=== PATIENT | female | born 1940 | race Caucasian/White ===

== ENCOUNTER 2016-11-12 08:19 | Inpatient (IN) | payer MEDICARE, BC ==
[2016-11-12] MEDS ORDERED: Ondansetron 4 MG Tab.DIS PO PRN (15:08)
[2016-11-12] MEDS ORDERED: Sodium Chloride 0.9% 10 ML Syringe FLUSH PRN (15:08)
[2016-11-12] MEDS: Lactated Ringers 1,000 ML IV SCH (16:51)
[2016-11-12] MEDS: Enoxaparin 40 MG/0.4 ML Syringe SUBCUT SCH (17:25)
[2016-11-12] MEDS ORDERED: Acyclovir 400 MG Tab PO PRN (17:38)
[2016-11-12] MEDS ORDERED: Acetaminophen 325 MG Tab PO PRN (17:38)
[2016-11-12] MEDS ORDERED: GLYCERIN 0.9% EYEBOTH PRN (17:38)
[2016-11-12] MEDS ORDERED: Albuterol/Ipratropium 4 GM Inhalation Spray INH PRN (17:38)
[2016-11-12] MEDS ORDERED: CARBOXYMETHYLCELLULOSE EYEBOTH PRN (17:38)
--- NOTE | 2016-11-12 17:38 | PCM.HP ---
H&P History of Present Illness - General Date of Service: 11/12/16 Admit Problem/Dx: Admission Diagnosis/Problem Admission Diagnosis/Problem Dehydration History Limitations: Reports: No limitations - History of Present Illness Initial Comments - Free Text/Narative: This is a 76-year-old female admitted from the clinic directly because of increasing confusion. She has experienced diarrhea for the last several weeks for which no cause has been identified. Her primary care physician saw her with complaints of increasing weakness, alteration of mental status and increasing difficulty memorizing and computing. She was admitted for further workup because of concern for dehydration and to follow other possibility other possible causes of the diarrhea.She lives at an independent living facility, [facility]. She has a history of a stroke, several years ago, hypertension which has been stable, anxiety and depression that has been difficult to control , with recent initiation of Lexapro 10 mg a day. 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 Furthermore she's had frequent unit tract infections. She also has a history of dementia, which is mild and is currently treated by [facility]. She has oxygen-dependent COPD treated as of nasal cannula everyday continuously. There has been no increase in its use. She complains of no chest pain or shortness of breath or cough. Generalized Pain Score (Numeric/FACES): 5 - Related Data Allergies/Adverse Reactions: Allergies Allergy/AdvReac Type Severity Reaction Status Date / Time bacitracin Allergy Itching Verified 02/27/16 08:55 ciprofloxacin [From Cipro] Allergy Diarrhea Verified 02/27/16 08:55 ciprofloxacin HCl Allergy Diarrhea Verified 02/27/16 08:55 [From Cipro] morphine Allergy Headache Verified 02/27/16 08:55 Home Medications: Home Meds Cholecalciferol (Vitamin D3) [Vitamin D3] 3,000 unit PO DAILY@1800 07/11/14 [ History] Clopidogrel [Plavix] 75 mg PO MOWEFR 07/11/14 [History] Donepezil HCl 10 mg PO BEDTIME 07/11/14 [History] Furosemide [Lasix] 20 mg PO DAILY 07/11/14 [History] Memantine HCl [Namenda Xr] 21 mg PO BEDTIME 07/11/14 [History] Spironolactone [Aldactone] 12.5 mg PO DAILY 07/11/14 [History] clonazePAM [Klonopin] 0.5 mg PO BEDTIME 07/11/14 [History] traZODone 100 mg PO BEDTIME 07/11/14 [History] Albuterol/Ipratropium [Combivent Respimat] 2 puff IH QID 02/26/16 [History] Leflunomide [Arava] 20 mg PO DAILY 02/26/16 [History] Aspirin [Lo-Dose Aspirin EC] 81 mg PO DAILY@1200 05/23/16 [History] Lidhygenix 1 applic EYEBOTH MOTH 05/23/16 [History] Magnesium 250 mg PO BIDMEALS 05/23/16 [History] Multivitamin [Daily Elzbieta] 1 tab PO DAILY 05/23/16 [History] Oxybutynin 5 mg PO BID 05/23/16 [History] Potassium Chloride [Klor-Con M20] 30 meq PO BIDMEALS 05/23/16 [History] Ranitidine [Zantac] 150 mg PO BIDMEALS 05/23/16 [History] Simvastatin [Zocor] 60 mg PO BEDTIME 05/23/16 [History] cycloSPORINE [Restasis] 1 drop EYEBOTH BID 05/23/16 [History] Acetaminophen [Tylenol] 650 mg PO Q4H PRN 11/12/16 [History] Acyclovir 400 mg PO QID PRN 11/12/16 [History] Calcium Carbonate [Calcium] 600 mg PO BIDMEALS 11/12/16 [History] Carboxymethylcellulos/Glycerin [Refresh Optive] 1 drop EYEBOTH QID PRN 11/12/16 [History] Cliradex Foam 1 applic TOP MOTH 11/12/16 [History] Diphenoxylate HCl/Atropine [Lomotil] 1 tab PO QID PRN 11/12/16 [History] Escitalopram [Lexapro] 10 mg PO BEDTIME 11/12/16 [History] Loperamide [Imodium AD] 2 mg PO ASDIRECTED PRN 11/12/16 [History] oxyCODONE HCl/Acetaminophen [Percocet 10-325 mg Tablet] 1 tab PO QID 11/12/16 [ History] Past Medical History HEENT History: Reports: Cataract, Macular degeneration Cardiovascular History: Reports: Bypass, Hypertension, Other (see below) Other Cardiovascular History: BYPASS GRAFT WVEIN SUBCLAVIAN-BRACHIAL, CAROTID ENDARTERECTOMY, CVD Respiratory History: Reports: COPD, Other (see below) Other Respiratory History: CHRONIC AIRWAY OBSTRUCTION, IPF Gastrointestinal History: Reports: Diverticulosis, GERD Other Gastrointestinal History: DYSPHAGIA Other Genitourinary History: BLADDER TUMOR,GROSS HEMATURIA, URINARY INCONTINENCE , RECURRENT UTI, OAB, COMMUNICATION SIGNALS INTELLIGENCE History: Reports: Musculoskeletal History: Reports: Back pain, chronic, Fracture Other Musculoskeletal History: LUMBAGO Neurological History: Reports: CVA, Speech problems Other Neuro History: EXPRESSIVE APHAGIA, GENERALIZED ANXIETY DISORDER Psychiatric History: Reports: Dementia, Depression Dermatologic History: Reports: Other (see below) Other Dermatologic History: CANDIDIASIS OF SKIN AND NAILS - Infectious Disease History Infectious Disease History: Reports: Chicken pox, Measles - Past Surgical History HEENT Surgical History: Reports: Cataract surgery, Tonsillectomy, Other (see below) Other HEENT Surgeries/Procedures: RECONSTRUCTION LEFT EAR, ESOPHAGEAL MANOMETRY, EGD, LAP FILIPE, BRAIN SURGERY Cardiovascular Surgical History: Reports: Carotid endarterectomy Other Cardiovascular Surgeries/Procedures: SEE WRITTEN H&P Respiratory Surgical History: Reports: None GI Surgical History: Reports: Appendectomy, Cholecystectomy, EGD Female Surgical History: Reports: Hysterectomy Other Female Surgeries/Procedures: TUR BLADDER Musculoskeletal Surgical History: Reports: Carpal tunnel, Hip replacement, Other (see below) Other Musculoskeletal Surgeries/Procedures:: ARTHRODESIS WRIST, OSTEOPLASTY RADIUS & ULNA SHORTENING,BACK SURGERY, ARTHROPLASTY KNEE, TOTAL LEFT HIP, WRIST FUSION, LEFT, THROMBOPHLEBITIS Social & Family History - Family History Family Medical History: Noncontributory HEENT: Reports: Impaired vision Cardiac: Reports: IA Respiratory: Reports: None OBGYN: Reports: Other Oncologic Family History: zmot - Tobacco Use Smoking Status *Q: Former Smoker Years of Tobacco use: 54 Packs/Tins Daily: 2 Used Tobacco, but Quit: Yes Month Tobacco Last Used: May Tobacco Use Comment: QUIT 7 YEARS AGO Second Hand Smoke Exposure: No - Caffeine Use Caffeine Use: Reports: Other Other Caffeine Use: DIET SODA'S IN LARGE AMOUNTS PER DAY. - Alcohol Use Days Per Week of Alcohol Use: 0 - Recreational Drug Use Recreational Drug Use: No H&P Review of Systems - Review of Systems: Review Of Systems: ROS reveals no pertinent complaints other than HPI. Exam - Exam Exam: See Below - Vital Signs Vital Signs: Last Vital Signs Temp 98.1 F 11/12/16 14:50 Pulse 82 11/12/16 14:50 Resp 24 H 11/12/16 14:50 BP 101/58 L 11/12/16 14:50 Pulse Ox 91 L 11/12/16 14:50 Weight: 60.356 kg - Exam Quality Assessment: supplemental oxygen General: alert, oriented, 4 HEENT: PERRLA, Hearing intact, Mucosa moist & pink, Nares patent, Normal nasal septum, Posterior pharynx clear, Conjunctiva clear, EOMI, EACs clear, TMs clear Neck: supple, trachea midline, 2 Lungs: Clear to auscultation, Normal respiratory effort Cardiovascular: regular rate, regular rhythm Abdomen: normal bowel sounds, soft (Female) Exam: Deferred Rectal (Female) Exam: Deferred Back Exam: normal inspection, full range of motion, NT Extremities: 3, normal inspection, 10 Skin: warm, dry, intact Neurological: cranial nerves intact, reflexes equal bilateral Neuro Extensive - Mental Status: alert, oriented x3, normal mood/affect, normal cognition Neuro Extensive - Motor, Sensory, Reflexes: CN II-XII intact, normal gait, normal reflexes Psychiatric: alert, normal affect (mild confusion-doesnt know the month), other - Patient Data Lab Results last 24 hrs: Laboratory Results - last 24 hr 11/12/16 11/12/16 11/12/16 Range/Units 15:25 15:25 15:25 WBC 6.5 (4.5-12.0) X10-3/uL RBC 4.17 (3.23-5.20) x10(6)uL Hgb 12.6 (11.5-15.5) g/dL Hct 37.3 (30.0-51.3) % MCV 89.5 (80-96) fL MCH 30.2 (27.7-33.6) pg MCHC 33.8 (32.2-35.4) g/dL RDW 13.6 (11.5-15.5) % Plt Count 126 (125-369) X10(3)uL MPV 10.0 (7.4-10.4) fL Neut % (Auto) 59.7 (46-82) % Lymph % (Auto) 28.5 (13-37) % [place] % (Auto) 10.2 (4-12) % Eos % (Auto) 1 (1.0-5.0) % Baso % (Auto) 1 (0-2) % Neut # (Auto) 3.8 (1.6-8.3) # Lymph # (Auto) 1.8 (0.6-5.0) # [place] # (Auto) 0.7 (0.0-1.3) # Eos # (Auto) 0.1 (0.0-0.8) # Baso # (Auto) 0.0 (0.0-0.2) # ABG pH (7.35-7.45) ABG pCO2 (35-45) mmHg ABG pO2 (83-108) mmHg ABG HCO3 (22-26) mmol/L ABG O2 Saturation (96-97) % ABG Base Excess (-2-2) Mervin Test O2 Delivery Device Oxygen Flow Rate L Sodium 140 (135-145) mmol/L Potassium 3.5 (3.5-5.3) mmol/L Chloride 111 H D (100-110) mmol/L Carbon Dioxide 21 L (23-29) mmol/L BUN 16 (8-23) mg/dL Creatinine 0.8 (0.6-1.3) mg/dL Est Cr Clr Drug Dosing 48.06 mL/min Estimated GFR (MDRD) > 60 (>60) BUN/Creatinine Ratio 20.0 (9-20) Glucose 92 (80-116) mg/dL Calcium 8.5 L (8.6-10.2) mg/dL Total Bilirubin 0.7 (0.1-1.3) mg/dL AST 46 H D (5-27) IU/L ALT 29 H (14-26) IU/L Alkaline Phosphatase 51 L (56-112) IU/L Troponin I 0.01 L (0.02-0.06) NG/ML Total Protein 6.4 (6.0-8.0) g/dL Albumin 3.8 (3.2-4.6) g/dL Globulin 2.6 g/dL Albumin/Globulin Ratio 1.5 03/22/17 Range/Units 16:25 WBC (4.5-12.0) X10-3/uL RBC (3.23-5.20) x10(6)uL Hgb (11.5-15.5) g/dL Hct (30.0-51.3) % MCV (80-96) fL MCH (27.7-33.6) pg MCHC (32.2-35.4) g/dL RDW (11.5-15.5) % Plt Count (125-369) X10(3)uL MPV (7.4-10.4) fL Neut % (Auto) (46-82) % Lymph % (Auto) (13-37) % [place] % (Auto) (4-12) % Eos % (Auto) (1.0-5.0) % Baso % (Auto) (0-2) % Neut # (Auto) (1.6-8.3) # Lymph # (Auto) (0.6-5.0) # [place] # (Auto) (0.0-1.3) # Eos # (Auto) (0.0-0.8) # Baso # (Auto) (0.0-0.2) # ABG pH 7.43 (7.35-7.45) ABG pCO2 29 L (35-45) mmHg ABG pO2 78 L (83-108) mmHg ABG HCO3 19 L (22-26) mmol/L ABG O2 Saturation 96 (96-97) % ABG Base Excess -3.3 L (-2-2) Mervin Test Passed O2 Delivery Device Nasal cannula Oxygen Flow Rate 0 L Sodium (135-145) mmol/L Potassium (3.5-5.3) mmol/L Chloride (100-110) mmol/L Carbon Dioxide (23-29) mmol/L BUN (8-23) mg/dL Creatinine (0.6-1.3) mg/dL Est Cr Clr Drug Dosing mL/min Estimated GFR (MDRD) (>60) BUN/Creatinine Ratio (9-20) Glucose (80-116) mg/dL Calcium (8.6-10.2) mg/dL Total Bilirubin (0.1-1.3) mg/dL AST (5-27) IU/L ALT (14-26) IU/L Alkaline Phosphatase (56-112) IU/L Troponin I (0.02-0.06) NG/ML Total Protein (6.0-8.0) g/dL Albumin (3.2-4.6) g/dL Globulin g/dL Albumin/Globulin Ratio Result Diagrams: 11/12/16 15:25 11/13/16 06:25 Imaging Impressions last 24 hrs: CXR-negative *Q Meaningful Use (ADM) - VTE *Q VTE Criteria *Q: - Stroke *Q Stroke Criteria *Q: - AMI *Q AMI Criteria *Q: - Problem List (1) Diarrhea SNOMED Code(s): 42040317 ICD Code: R19.7 - DIARRHEA, UNSPECIFIED Status: Acute Current Visit: Yes Qualifiers: Diarrhea type: unspecified type Qualified Code(s): R19.7 - Diarrhea, unspecified (2) Dehydration SNOMED Code(s): 33712332 ICD Code: E86.0 - DEHYDRATION Status: Acute Current Visit: Yes (3) Chronic back pain SNOMED Code(s): 668131537 ICD Code: M54.9 - DORSALGIA, UNSPECIFIED; G89.29 - OTHER CHRONIC PAIN Status: Chronic Current Visit: Yes Qualifiers: Back pain location: low back pain Sciatica presence: without sciatica (4) CAD (coronary artery disease) SNOMED Code(s): 19772673 ICD Code: I25.10 - ATHSCL HEART DISEASE OF [place] CORONARY ARTERY W/O ANG PCTRS Status: Chronic Current Visit: No (5) COPD, Moderate chronic obstructive pulmonary disease SNOMED Code(s): 660951536 ICD Code: J44.9 - CHRONIC OBSTRUCTIVE PULMONARY DISEASE, UNSPECIFIED Status : Chronic Current Visit: No (6) Depression SNOMED Code(s): 40831189 ICD Code: F32.9 - MAJOR DEPRESSIVE DISORDER, SINGLE EPISODE, UNSPECIFIED Status: Chronic Current Visit: Yes Qualifiers: Depression Type: major depressive disorder Active/Remission status: currently active Psychotic features: without psychotic features (7) Mental confusion SNOMED Code(s): 380248487 ICD Code: R41.0 - DISORIENTATION, UNSPECIFIED Status: Acute Current Visit : No Problem Details: Multifactorial Problem List Initiated/Reviewed/Updated: Yes Orders Last 24hrs: Active Orders 24 hr Category Date Time Status Patient Status [ADT] Routine ADT 11/12/16 15:08 Active EKG Documentation Completion [RC] ASDIRECTED Care 11/12/16 15:12 Active Height and Weight [RC] 07 Care 11/12/16 15:08 Active Intake and Output [RC] 06,14,22 Care 11/12/16 15:10 Active May Shower [RC] ASDIRECTED Care 11/12/16 15:08 Active Oxygen Therapy [RC] PRN Care 11/12/16 15:08 Active Up With Assistance [RC] ASDIRECTED Care 11/12/16 15:08 Active VTE/DVT Education [RC] Per Unit Routine Care 11/12/16 15:08 Active Vital Signs [RC] Q4H Care 11/12/16 15:08 Active OT Evaluation and Treatment [CONS] Routine Cons 11/12/16 15:08 Active PT Evaluation and Treatment [CONS] Routine Cons 11/12/16 15:08 Active Regular Diet [DIET] Diet 11/12/16 Dinner Active Chest 2V [CR] Routine Exams 11/12/16 15:08 Taken B-TYPE NATRIURETIC PEPTIDE,BNP [CHEM] AM Lab 11/13/16 05:11 Ordered BASIC METABOLIC PANEL,BMP [CHEM] AM Lab 11/13/16 05:11 Ordered C DIFFICILE BY DNA [RM] Urgent Lab 11/12/16 17:34 Uncollected UA W/MICROSCOPIC [URIN] Routine Lab 11/12/16 15:08 Uncollected Enoxaparin [Lovenox] Med 11/12/16 17:00 Active 40 mg SUBCUT DAILY@1700 Lactated Ringers [Ringers, Lactated] 1,000 ml Med 11/12/16 15:15 Active IV ASDIRECTED Ondansetron [Zofran ODT] Med 11/12/16 15:08 Active 4 mg PO Q4H PRN Sodium Chloride 0.9% [Saline Flush] Med 11/12/16 15:08 Active 10 ml FLUSH ASDIRECTED PRN Peripheral IV Insertion Adult [OM.PC] Routine Oth 11/12/16 15:08 Ordered Sequential Compression Device [OM.PC] Per Unit Routine Oth 11/12/16 15:10 Ordered Resuscitation Status Routine Resus Stat 11/12/16 15:08 Ordered EKG 12 Lead [EK] Routine Ther 11/12/16 15:08 Ordered Medication Orders Enoxaparin Sodium (Lovenox) 40 mg SUBCUT DAILY@1700 MYLES Last Admin: 11/12/16 17:25 Dose: 40 mg Lactated Ringer's (Ringers, Lactated) 1,000 mls @ 125 mls/hr IV ASDIRECTED MYLES Last Admin: 11/12/16 16:51 Dose: 125 mls/hr Ondansetron HCl (Zofran Odt) 4 mg PO Q4H PRN PRN Reason: nausea, able to take PO Sodium Chloride (Saline Flush) 10 ml FLUSH ASDIRECTED PRN PRN Reason: Keep Vein Open Last Admin: 11/12/16 16:51 Dose: 10 ml Assessment/Plan Comment:: The patient woll be admotted for observation, and rehydration. She looks weak and her bicarbonate is low, I believe crystalloids replacement will be necessary for the next 12 hours. Also given Lomotil to control the diarrhea a sample be sent to check for C. difficile. I discontinued oxycodone and lorazepam which could possibly lead to confusion, in its place I would treat her with trazodone at night to sleep, and tramadol when necessary for chronic back pain. I would also ask physical therapy and occupational therapy to see her for strengthening, discharge planning. The rest of the home medications will be initiated. I did send a UA and repeat electrolytes in the morning.
[2016-11-12] MEDS ORDERED: Melatonin 3 MG Tab PO PRN (17:42)
[2016-11-12] MEDS ORDERED: CALCIUM CARBONATE 600 MG PO SCH (18:00)
[2016-11-12] MEDS ORDERED: Celecoxib 100 MG Cap ONE (18:39)
[2016-11-12] MEDS: Celecoxib 200 MG Cap PO SCH (18:46)
[2016-11-12] MEDS: RANITIDINE 150 MG PO SCH (20:27)
[2016-11-12] MEDS: Cholecalciferol (Vitamin D3) 1,000 Unit Tab PO SCH (20:28)
[2016-11-12] MEDS: Donepezil 10 MG Tab PO SCH (20:28)
[2016-11-12] MEDS: Escitalopram 10 MG Tab PO SCH (20:29)
[2016-11-12] MEDS: Oxybutynin 5 MG Tab PO SCH (20:30)
[2016-11-12] MEDS: cycloSPORINE Ophth Drops U/D Box of 30 EYEBOTH SCH (20:30)
[2016-11-12] MEDS: traZODone 100 MG Tab PO SCH (20:31)
[2016-11-12] MEDS: CALCIUM CARBONATE 600 MG PO SCH (20:32)
[2016-11-12] MEDS ORDERED: MEMANTINE HCL 21 MG PO SCH (21:00)
[2016-11-12] MEDS ORDERED: Simvastatin 40 MG Tab **OWN MED PO SCH (21:00)
[2016-11-13] MEDS: Lactated Ringers 1,000 ML IV SCH (00:58)
[2016-11-13] MEDS: Atropine/Diphenoxylate 0.025-2.5 MG Tab PO PRN ×4 (02:58→21:06)
--- NOTE | 2016-11-13 07:28 | CR ---
INDICATION: Effusion, COPD, short of breath. CHEST: PA and lateral views of the chest 11/12/2016 were compared with 2013 and 07/11/2014, revealing heavy markings at the lung bases, most likely fibrotic in nature but making it difficult to exclude patchy bronchopneumonia, especially at the left costophrenic angle - left lower lobe. Markings are rather heavy posteriorly on the lateral view and less so anteriorly. The heart did not appear to be enlarged. The aorta is tortuous with calcification in the arch. Diminished bone density is noted, compatible with osteoporosis. A mild to moderate dextroconcave scoliosis of the lower thoracic spine is noted. IMPRESSION: 1. Heavy markings at the lung bases, especially on the left, making it difficult to exclude patchy bronchopneumonia. 2. ASD aorta. 3. Osteoporosis. 4. Dextroconcave scoliosis lower thoracic spine. MTDD
[2016-11-13] MEDS: CALCIUM CARBONATE 600 MG PO SCH (08:41)
[2016-11-13] MEDS: Spironolactone 25 MG Tab PO SCH (08:43)
[2016-11-13] MEDS: Celecoxib 200 MG Cap PO SCH (08:43)
[2016-11-13] MEDS: RANITIDINE 150 MG PO SCH (08:43)
[2016-11-13] MEDS: Furosemide 20 MG Tab PO SCH (08:45)
[2016-11-13] MEDS: LEFLUNOMIDE 20 MG PO SCH (08:46)
[2016-11-13] MEDS: Oxybutynin 5 MG Tab PO SCH ×2 (08:48→20:03)
[2016-11-13] MEDS: cycloSPORINE Ophth Drops U/D Box of 30 EYEBOTH SCH ×2 (08:49→20:02)
[2016-11-13] MEDS: cefTRIAXone 1 GM in Sodium Chloride 0.9% 50 ML IV SCH (08:50)
[2016-11-13] MEDS: Multivitamin Tab PO SCH (08:50)
[2016-11-13] MEDS ORDERED: Potassium Chloride 20 MEQ Tab.ER PO SCH (09:00)
[2016-11-13] MEDS ORDERED: [UNRECOGNIZED DRUG - OTHER] TOP SCH (09:00)
[2016-11-13] MEDS ORDERED: Potassium Chloride 20 MEQ Tab.ER*PTOM PO SCH (09:00)
[2016-11-13] MEDS ORDERED: [UNRECOGNIZED DRUG - OTHER] EYEBOTH SCH (09:00)
[2016-11-13] MEDS ORDERED: APPLICATOR TOP SCH (09:00)
[2016-11-13] MEDS ORDERED: Sodium Chloride 0.9% 250 ML IV SCH (09:15)
--- NOTE | 2016-11-13 09:38 | PN ---
DATE SEEN: 11/13/2016 CHIEF COMPLAINT: Diarrhea. HISTORY OF PRESENT ILLNESS: This is a 76-year-old female, who was admitted yesterday because of diarrhea and confusion. Overnight, she still had several stools of liquid foul-smelling stools, despite Lomotil. She has no nausea or abdominal pain. Furthermore, she is noted to be confused, especially disoriented to place and time. No fever has been reported. REVIEW OF SYSTEMS: She has generalized weakness. No chest pain. No cough. No fever. ALLERGIES: Updated. MEDICATIONS: Updated. PHYSICAL EXAMINATION: VITAL SIGNS: Blood pressure is 144/83, temperature is 97.6, oxygenation 93% on 3 L of nasal cannula. ENT: Negative. NECK: Supple. CHEST: Clear breath sounds. CARDIOVASCULAR: Irregular rate and rhythm. EXTREMITIES: No edema. MENTAL STATUS: Disoriented to place and time and day. ABDOMEN: Soft and benign. LABORATORY DATA: Sodium 141, potassium 3.0. C. diff is pending. BNP is 154. UA showed more than 100 white cells with large leukocyte esterase. IMPRESSION: 1. Alteration of mental status. 2. Depression and anxiety. 3. Dementia. 4. Urinary tract infection. 5. Chronic obstructive pulmonary disease, oxygen dependent. 6. Hypokalemia and dehydration. 7. Diarrhea of unknown reason. 8. Coronary artery disease, stable. 9. Chronic back pain that is stable. PLAN: Replace potassium orally, Hep-Lock the IV, encourage oral fluids, continue Lomotil, await the C. diff on the stool. I will change the patient to inpatient, because she does have a need for the UTI to be treated with IV antibiotics. The chest x-ray was nonacute, but the radiologist was unable to rule out patchy bronchopneumonia. I believe the Rocephin should be sufficient at this time. She is allergic to fluoroquinolones. I have asked Physical Therapy to see her also for strengthening and discharge planning. /[id number] PEYTON/DIMA
[2016-11-13] MEDS: Memantine 10 MG Tab PO SCH ×2 (10:33→20:03)
[2016-11-13] MEDS ORDERED: Aspirin 81 MG Tab.EC PO SCH (12:00)
[2016-11-13] MEDS: traMADol 50 MG Tab PO PRN (12:46)
[2016-11-13] MEDS: Enoxaparin 40 MG/0.4 ML Syringe SUBCUT SCH (16:17)
[2016-11-13] MEDS: Potassium Chloride 10 MEQ Tab.ER PO SCH (18:05)
[2016-11-13] MEDS: Calcium Carbonate/Vitamin D3 1250 MG-200 Unit Tab PO SCH (18:10)
[2016-11-13] MEDS: Cholecalciferol (Vitamin D3) 1,000 Unit Tab PO SCH (18:11)
[2016-11-13] MEDS: Magnesium Oxide 400 MG Tab PO SCH (18:11)
[2016-11-13] MEDS: Famotidine 20 MG Tab PO SCH (18:11)
[2016-11-13] MEDS: traZODone 100 MG Tab PO SCH (20:03)
[2016-11-13] MEDS: Donepezil 10 MG Tab PO SCH (20:03)
[2016-11-13] MEDS: Escitalopram 10 MG Tab PO SCH (20:03)
[2016-11-13] MEDS ORDERED: Simvastatin 20 MG Tab PO SCH (21:00)
[2016-11-14] MEDS: Atropine/Diphenoxylate 0.025-2.5 MG Tab PO PRN (05:02)
[2016-11-14] MEDS: traMADol 50 MG Tab PO PRN (05:02)
[2016-11-14] MEDS: Calcium Carbonate/Vitamin D3 1250 MG-200 Unit Tab PO SCH (08:30)
[2016-11-14] MEDS: Potassium Chloride 10 MEQ Tab.ER PO SCH (08:30)
[2016-11-14] MEDS: Magnesium Oxide 400 MG Tab PO SCH (08:30)
[2016-11-14] MEDS: Famotidine 20 MG Tab PO SCH (08:30)
[2016-11-14] MEDS ORDERED: Clopidogrel 75 MG Tab PO SCH (09:00)
[2016-11-14] MEDS: cycloSPORINE Ophth Drops U/D Box of 30 EYEBOTH SCH (09:11)
[2016-11-14] MEDS: Multivitamin Tab PO SCH (09:12)
[2016-11-14] MEDS: Furosemide 20 MG Tab PO SCH (09:13)
[2016-11-14] MEDS: Oxybutynin 5 MG Tab PO SCH (09:13)
[2016-11-14] MEDS: Celecoxib 200 MG Cap PO SCH (09:13)
[2016-11-14] MEDS: Memantine 10 MG Tab PO SCH (09:13)
[2016-11-14] MEDS: Spironolactone 25 MG Tab PO SCH (09:13)
--- NOTE | 2016-11-14 09:31 | PN ---
DATE SEEN: 11/14/2016 CHIEF COMPLAINT: Diarrhea. HISTORY OF PRESENT ILLNESS: This is a 76-year-old female, who has had diarrhea, which has been uncontrolled. Currently, her urinary tract infection is being treated on Rocephin. She has no fever or urinary symptoms. She also has a history of confusion and dementia, which worsened recently, but seems to have improved after rehydration. REVIEW OF SYSTEMS: No fevers were reported. No abdominal pain. No cough or cold symptoms. ALLERGIES: Please see the nurse's notes. PHYSICAL EXAMINATION: VITAL SIGNS: Her blood pressure today is normal. Temperature is 97.6, and she has oxygenation of 95% on 3 L. EARS, NOSE, AND THROAT: Negative. MENTAL STATUS: Alert, answers questions well. ABDOMEN: Soft and benign. MUSCULOSKELETAL: She is able to ambulate with a walker. LABORATORY DATA: Today potassium is 3.2. White cell count is 4.0. IMPRESSION: 1. Diarrhea, chronic. 2. Delirium, improved. 3. Dehydration, improved. 4. Urinary tract infection with some improvement. 5. Chronic obstructive pulmonary disease, stable. 6. Anxiety and depression, stable. PLAN: I will discharge the patient home. I discussed with the daughter, Margret that the patient will need further workup as an outpatient for the cause of diarrhea. She will go home on Lomotil and an antibiotic for urinary tract infection. I chose cephalexin. Regular home medications for anxiety, COPD, CHF will be continued. /[id number] PEYTON/DIMA
[2016-11-14] MEDS: cefTRIAXone 1 GM in Sodium Chloride 0.9% 50 ML IV SCH (10:06)
[2016-11-14] MEDS: LEFLUNOMIDE 20 MG PO SCH (10:30)
--- NOTE | 2016-11-14 11:37 | DISCH ---
DISCHARGE DATE: 11/14/2016 REASON FOR ADMISSION: 1. Being increasing confusion. 2. Diarrhea. 3. Stable chronic obstructive pulmonary disease. 4. Depression. 5. History of chronic back pain. 6. Dehydration. 7. Coronary artery disease, stable. DISCHARGE DIAGNOSES: 1. Being increasing confusion. 2. Diarrhea. 3. Stable chronic obstructive pulmonary disease. 4. Depression. 5. History of chronic back pain. 6. Dehydration. 7. Coronary artery disease, stable. 8. Urinary tract infection. PROCEDURES: None. CONSULTATIONS: Physical therapy. BRIEF HISTORY AND HOSPITAL COURSE: This is a 76-year-old female from the [facility], who was admitted for increasing confusion, diarrhea going on for 3 weeks and was treated here for urinary tract infection. She was rehydrated for 24 hours, and Rocephin was initiated for the UTI that was found in the urine. Her confusion somewhat improved. She was able to ambulate on herself. She has dementia and depression that have been difficult to control. Because of the confusion, I discontinued oxycodone in favor of Celebrex 200 mg once a day and tramadol 50 mg q.i.d. p.r.n. I also discontinued nighttime Klonopin in favor of 6 mg of melatonin. I discharged her home on 500 mg of cephalexin twice a day for 5 days. The plan is for her to see Dr. Lu in a week or return here with any worsening symptoms. Because of the need and several medication adjustments and home bound status, at least initially, I feel that she needs a intermediate agency to help with medications and monitoring the next couple of days. I spent more than 35 minutes in the discharge of the patient. /[id number] PEYTON/BECKYL
[2016-11-14 12:01] VITALS: BP 132/68
== END 2016-11-14 11:00 | disposition home health service (06) | DRG 690 ==
LOC: FB.MS 08:19 → INTOOBSV 14:28 → FB.MS 14:28 → OBSVTOIN 11-13 08:19
PROVIDERS: ADMIT Family Medicine; ATTEND Family Medicine
DX: N39.0 Urinary tract infection, site not specified (principal); R19.7 Diarrhea, unspecified; E86.0 Dehydration; R41.0 Disorientation, unspecified; J44.9 Chronic obstructive pulmonary disease, unspecified; M54.9 Dorsalgia, unspecified; G89.29 Other chronic pain; I25.10 Atherosclerotic heart disease of native coronary artery without angina pectoris; G24.9 Dystonia, unspecified; Z86.73 Personal history of transient ischemic attack (TIA), and cerebral infarction without residual deficits; F41.8 Other specified anxiety disorders; Z99.81 Dependence on supplemental oxygen; Z95.5 Presence of coronary angioplasty implant and graft; Z87.891 Personal history of nicotine dependence
CPT/HCPCS: 36415 ×2; 36600; 71020; 80048; 80053; 81001; 82803; 83880; 84484; 85025; 87086; 93005; 96372; A9270 ×15; G0378 ×2; J1650; J7050; J7120 ×2; 87088; 87186; 87324; 97110-GP; 97116-GP; 97161-GP; 97165-GO; 97530-GP; J0696

== ENCOUNTER 2016-12-11 10:22 | Inpatient (IN) | payer MEDICARE, BC ==
[2016-12-11] MEDS ORDERED: Sodium Chloride 0.9% 10 ML Syringe FLUSH PRN (10:47)
[2016-12-11] MEDS ORDERED: Enoxaparin 30 MG/0.3 ML Syringe SUBCUT SCH (11:00)
[2016-12-11] MEDS ORDERED: Sodium Chloride 0.9% 1,000 ML IV SCH (11:00)
[2016-12-11] MEDS: Enoxaparin 30 MG/0.3 ML Syringe SUBCUT SCH (12:02)
[2016-12-11] MEDS: NS + KCl 20mEq/L 1,000 ML IV SCH (14:57)
--- NOTE | 2016-12-11 19:50 | PCM.HP ---
H&P History of Present Illness - General Date of Service: 12/11/16 Admit Problem/Dx: Admission Diagnosis/Problem Admission Diagnosis/Problem Dehydration Source of Information: Patient, Family, Old records History Limitations: Reports: Altered mental status - History of Present Illness Initial Comments - Free Text/Narative: 76-year-old female admitted for failure to thrive. She said weeks of weight loss, chronic diarrhea, recurrent dehydration and feeling poorly. She was significant today for the same reason and admitted by Dr. Lu directly. She is disoriented to time and therefore history taking is mostly from old records and speaking to her physician and the nursing staff. Is no report of any fever vomiting cough. She has a history of chronic back pain, depression, and oxygen- dependent COPD have been difficult to control. buttocks ,right Pain Score (Numeric/FACES): 3 - Related Data Allergies/Adverse Reactions: Allergies Allergy/AdvReac Type Severity Reaction Status Date / Time bacitracin Allergy Itching Verified 12/11/16 12:34 ciprofloxacin [From Cipro] Allergy Diarrhea Verified 12/11/16 12:34 ciprofloxacin HCl Allergy Diarrhea Verified 12/11/16 12:34 [From Cipro] morphine Allergy Headache Verified 12/11/16 12:34 Home Medications: Home Meds Cholecalciferol (Vitamin D3) [Vitamin D3] 3,000 unit PO 1800 07/11/14 [History] Clopidogrel [Plavix] 75 mg PO MOWEFR 07/11/14 [History] Donepezil HCl 10 mg PO BEDTIME 07/11/14 [History] Furosemide [Lasix] 20 mg PO DAILY 07/11/14 [History] Memantine HCl [Namenda Xr] 21 mg PO BEDTIME 07/11/14 [History] Spironolactone [Aldactone] 12.5 mg PO DAILY 07/11/14 [History] clonazePAM [Klonopin] 0.5 mg PO BEDTIME 07/11/14 [History] traZODone 100 mg PO BEDTIME 07/11/14 [History] Albuterol/Ipratropium [Combivent Respimat] 2 puff IH QID 02/26/16 [History] Leflunomide [Arava] 20 mg PO DAILY 02/26/16 [History] Aspirin [Lo-Dose Aspirin EC] 81 mg PO DAILY@1200 05/23/16 [History] Lidhygenix 1 applic EYEBOTH MOTH 05/23/16 [History] Magnesium 250 mg PO BIDMEALS 05/23/16 [History] Multivitamin [Daily Elzbieta] 1 tab PO DAILY 05/23/16 [History] Oxybutynin 5 mg PO BID 05/23/16 [History] Potassium Chloride [Klor-Con M20] 30 meq PO BIDMEALS 05/23/16 [History] Ranitidine [Zantac] 150 mg PO BIDMEALS 05/23/16 [History] Simvastatin [Zocor] 60 mg PO BEDTIME 05/23/16 [History] cycloSPORINE [Restasis] 1 drop EYEBOTH BID 05/23/16 [History] Acetaminophen [Tylenol] 650 mg PO Q4H PRN 11/12/16 [History] Acyclovir 400 mg PO QID PRN 11/12/16 [History] Calcium Carbonate [Calcium] 600 mg PO BIDMEALS 11/12/16 [History] Carboxymethylcellulos/Glycerin [Refresh Optive] 1 drop EYEBOTH QID PRN 11/12/16 [History] Cliradex Foam 1 applic TOP MOTH 11/12/16 [History] Escitalopram [Lexapro] 10 mg PO BEDTIME 11/12/16 [History] Celecoxib [CeleBREX] 200 mg PO DAILY #30 cap 11/14/16 [Rx] Melatonin 6 mg PO BEDTIME PRN #30 tablet 11/14/16 [Rx] Loperamide [Imodium] 2 mg PO Q4H PRN 12/11/16 [History] Miconazole Nitrate [Aloe Mascotte] 1 applic TP ASDIRECTED PRN 12/11/16 [History] buPROPion [Wellbutrin] 100 mg PO 08,18 12/11/16 [History] traMADol [Ultram] 50 mg PO QID 12/11/16 [History] Past Medical History HEENT History: Reports: Cataract, Macular degeneration Cardiovascular History: Reports: Bypass, Hypertension, Other (see below) Other Cardiovascular History: BYPASS GRAFT WVEIN SUBCLAVIAN-BRACHIAL, CAROTID ENDARTERECTOMY, CVD Respiratory History: Reports: COPD, Other (see below) Other Respiratory History: CHRONIC AIRWAY OBSTRUCTION, IPF Gastrointestinal History: Reports: Diverticulosis, GERD Other Gastrointestinal History: DYSPHAGIA Other Genitourinary History: BLADDER TUMOR,GROSS HEMATURIA, URINARY INCONTINENCE , RECURRENT UTI, OAB, CLINICAL APPLICATION CONSULTANT History: Reports: Musculoskeletal History: Reports: Back pain, chronic, Fracture Other Musculoskeletal History: LUMBAGO Neurological History: Reports: CVA, Speech problems Other Neuro History: EXPRESSIVE APHAGIA, GENERALIZED ANXIETY DISORDER Psychiatric History: Reports: Dementia, Depression Dermatologic History: Reports: Other (see below) Other Dermatologic History: CANDIDIASIS OF SKIN AND NAILS - Infectious Disease History Infectious Disease History: Reports: Chicken pox, Measles - Past Surgical History HEENT Surgical History: Reports: Cataract surgery, Tonsillectomy, Other (see below) Other HEENT Surgeries/Procedures: RECONSTRUCTION LEFT EAR, ESOPHAGEAL MANOMETRY, EGD, LAP FILIPE, BRAIN SURGERY Cardiovascular Surgical History: Reports: Carotid endarterectomy Other Cardiovascular Surgeries/Procedures: SEE WRITTEN H&P Respiratory Surgical History: Reports: None GI Surgical History: Reports: Appendectomy, Cholecystectomy, EGD Female Surgical History: Reports: Hysterectomy Other Female Surgeries/Procedures: TUR BLADDER Musculoskeletal Surgical History: Reports: Carpal tunnel, Hip replacement, Other (see below) Other Musculoskeletal Surgeries/Procedures:: ARTHRODESIS WRIST, OSTEOPLASTY RADIUS & ULNA SHORTENING,BACK SURGERY, ARTHROPLASTY KNEE, TOTAL LEFT HIP, WRIST FUSION, LEFT, THROMBOPHLEBITIS Social & Family History - Family History Family Medical History: Noncontributory HEENT: Reports: Impaired vision Cardiac: Reports: NM Respiratory: Reports: None OBGYN: Reports: Other Oncologic Family History: zmot - Tobacco Use Smoking Status *Q: Former Smoker Years of Tobacco use: 54 Packs/Tins Daily: 2 Used Tobacco, but Quit: No Month Tobacco Last Used: unknown Second Hand Smoke Exposure: No - Caffeine Use Caffeine Use: Reports: Soda Other Caffeine Use: DIET SODA'S IN LARGE AMOUNTS PER DAY. - Alcohol Use Days Per Week of Alcohol Use: 0 - Recreational Drug Use Recreational Drug Use: No H&P Review of Systems - Review of Systems: Review Of Systems: ROS reveals no pertinent complaints other than HPI. Exam - Exam Exam: See Below - Vital Signs Vital Signs: Last Vital Signs Temp 97.6 F 12/11/16 16:00 Pulse 90 12/11/16 16:00 Resp 18 12/11/16 16:00 BP 131/80 12/11/16 16:00 Pulse Ox 97 12/11/16 16:00 Weight: 52.526 kg - Exam Quality Assessment: supplemental oxygen General: lethargic HEENT: PERRLA, Hearing intact, Mucosa moist & pink, Nares patent, Normal nasal septum, Posterior pharynx clear, Conjunctiva clear, EOMI, EACs clear, TMs clear Neck: supple, trachea midline, 2 Lungs: Clear to auscultation, Normal respiratory effort Cardiovascular: regular rate, regular rhythm Abdomen: soft, tenderness (RUQ). No: absent bowel sounds, splenomegaly (Female) Exam: Deferred Rectal (Female) Exam: Normal Exam, Deferred, Other (sacral mass) Back Exam: normal inspection, full range of motion, NT Extremities: 3, normal inspection, 10 Skin: warm, dry, intact Neurological: cranial nerves intact, reflexes equal bilateral Neuro Extensive - Mental Status: disorientation to place, disorientation to time. No: oriented x3 Neuro Extensive - Motor, Sensory, Reflexes: CN II-XII intact, normal gait, normal reflexes Psychiatric: alert, depressed - Patient Data Lab Results last 24 hrs: Laboratory Results - last 24 hr 12/11/16 12/11/16 12/11/16 Range/Units 11:25 11:25 11:25 WBC 6.5 (4.5-12.0) X10-3/uL RBC 4.26 (3.23-5.20) x10(6)uL Hgb 12.9 (11.5-15.5) g/dL Hct 38.2 (30.0-51.3) % MCV 89.7 (80-96) fL MCH 30.2 (27.7-33.6) pg MCHC 33.7 (32.2-35.4) g/dL RDW 13.7 (11.5-15.5) % Plt Count 119 L (125-369) X10(3)uL MPV 10.9 H (7.4-10.4) fL Add Manual Diff Yes Neutrophils % (Manual) 75 (46-82) % Band Neutrophils % 1 (0-6) % Lymphocytes % (Manual) 13 (13-37) % Monocytes % (Manual) 10 (4-12) % Eosinophils % (Manual) 1 (0-5) % Poikilocytosis Few Shahnaz Cells Few Acanthocytes (Spur) Few Sodium 140 (135-145) mmol/L Potassium 2.9 L (3.5-5.3) mmol/L Chloride 109 (100-110) mmol/L Carbon Dioxide 23 (23-29) mmol/L BUN 18 (8-23) mg/dL Creatinine 0.7 (0.6-1.3) mg/dL Est Cr Clr Drug Dosing 54.92 mL/min Estimated GFR (MDRD) > 60 (>60) BUN/Creatinine Ratio 25.7 H (9-20) Glucose 74 L (80-116) mg/dL Calcium 9.1 (8.6-10.2) mg/dL Total Bilirubin 0.2 (0.1-1.3) mg/dL AST 20 D (5-27) IU/L ALT 18 D (14-26) IU/L Alkaline Phosphatase 64 (56-112) IU/L Troponin I < 0.01 L (0.02-0.06) NG/ML Total Protein 6.2 (6.0-8.0) g/dL Albumin 3.4 (3.2-4.6) g/dL Globulin 2.8 g/dL Albumin/Globulin Ratio 1.2 Result Diagrams: 12/11/16 11:25 12/11/16 11:25 *Q Meaningful Use (ADM) - VTE *Q VTE Criteria *Q: - Stroke *Q Stroke Criteria *Q: - AMI *Q AMI Criteria *Q: - Problem List (1) Hypokalemia SNOMED Code(s): 17552586 ICD Code: E87.6 - HYPOKALEMIA Status: Acute Current Visit: Yes (2) Weight loss SNOMED Code(s): 614027631, 784670489 ICD Code: R63.4 - ABNORMAL WEIGHT LOSS Status: Acute Current Visit: Yes (3) Diarrhea SNOMED Code(s): 99792444 ICD Code: R19.7 - DIARRHEA, UNSPECIFIED Status: Acute Current Visit: No Qualifiers: (4) Mental confusion SNOMED Code(s): 238557912 ICD Code: R41.0 - DISORIENTATION, UNSPECIFIED Status: Acute Current Visit : No Problem Details: Multifactorial (5) Weakness SNOMED Code(s): 81618412 ICD Code: R53.1 - WEAKNESS Status: Acute Current Visit: No (6) COPD, Moderate chronic obstructive pulmonary disease SNOMED Code(s): 549380420 ICD Code: J44.9 - CHRONIC OBSTRUCTIVE PULMONARY DISEASE, UNSPECIFIED Status : Chronic Current Visit: No (7) Chronic back pain SNOMED Code(s): 776136112 ICD Code: M54.9 - DORSALGIA, UNSPECIFIED; G89.29 - OTHER CHRONIC PAIN Status: Chronic Current Visit: No Qualifiers: Back pain location: low back pain (8) Sacral mass SNOMED Code(s): 06475283 ICD Code: R22.2 - LOCALIZED SWELLING, MASS AND LUMP, TRUNK Status: Acute Current Visit: Yes Problem List Initiated/Reviewed/Updated: Yes Orders Last 24hrs: Active Orders 24 hr Category Date Time Status Patient Status [ADT] Routine ADT 12/11/16 10:47 Active Height and Weight [RC] 0600 Care 12/11/16 10:47 Active Intake and Output [RC] 06,14,22 Care 12/11/16 10:48 Active Notify Provider Consults [RC] ASDIRECTED Care 12/11/16 10:50 Active Oxygen Therapy [RC] PRN Care 12/11/16 10:47 Active Up With Assistance [RC] ASDIRECTED Care 12/11/16 10:47 Active Vital Signs [RC] 04,08,12,16,20,00 Care 12/11/16 10:47 Active Consult to Machine Operations Supervisor [CONS] Routine Cons 12/11/16 10:47 Active Consult to Physician [CONS] Routine Cons 12/11/16 10:47 Ordered Consult to Supervisor Cold Rolling [CONS] Routine Cons 12/11/16 10:47 Active OT Evaluation and Treatment [CONS] Routine Cons 12/11/16 10:47 Active PT Evaluation and Treatment [CONS] Routine Cons 12/11/16 10:47 Active Regular Diet [DIET] Diet 12/11/16 Lunch Active Chest 2V [CR] Routine Exams 12/11/16 10:47 Taken BASIC METABOLIC PANEL,BMP [CHEM] AM Lab 12/12/16 05:11 Ordered CDIFF TOXIN A+B GROUP [OP] Routine Lab 12/11/16 14:45 Received UA W/MICROSCOPIC [URIN] Routine Lab 12/11/16 10:47 Uncollected Enoxaparin [Lovenox] Med 12/11/16 11:00 Active 30 mg SUBCUT Q24H NS + KCl 20mEq/L [Normal Saline with 20 mEq KCl] 1,000 Med 12/11/16 13:30 Active ml IV Q10H Sodium Chloride 0.9% [Saline Flush] Med 12/11/16 10:47 Active 10 ml FLUSH ASDIRECTED PRN Peripheral IV Insertion Adult [OM.PC] Routine Oth 12/11/16 10:47 Ordered Sequential Compression Device [OM.PC] Per Unit Routine Oth 12/11/16 10:48 Ordered Resuscitation Status Routine Resus Stat 12/11/16 10:47 Ordered EKG 12 Lead [EK] Stat Ther 12/11/16 10:53 Ordered Medication Orders Enoxaparin Sodium (Lovenox) 30 mg SUBCUT Q24H [facility] Last Admin: 12/11/16 12:02 Dose: 30 mg Potassium Chloride/Sodium Chloride (Normal Saline With 20 Meq Kcl) 1,000 mls @ 100 mls/hr IV Q10H [facility] Last Admin: 12/11/16 14:57 Dose: 100 mls/hr Sodium Chloride (Saline Flush) 10 ml FLUSH ASDIRECTED PRN PRN Reason: Keep Vein Open Last Admin: 12/11/16 11:59 Dose: 10 ml Assessment/Plan Comment:: We will continue to replace fluids and include potassium, and repeat labs in the morning. I believe Dr. Lu will take over her care tomorrow for further workup. The sacral mass could be infectious, but needs to be watched to see if he thinks drainage. For now frequent position changes will suffice.
[2016-12-12] MEDS: NS + KCl 20mEq/L 1,000 ML IV SCH ×3 (01:04→21:27)
--- NOTE | 2016-12-12 08:25 | CR ---
INDICATION: Confusion. CHEST: PA and lateral views of the chest 12/11/2016 were compared with 2016 and 07/13/2014, revealing the heart to remain normal in size and shape. The aorta is tortuous with calcification in the arch. An appearance of diminished bone density suggests the possibility of osteoporosis - correlate clinically. Somewhat heavy basilar markings are similar to the previous studies, with no definite active infiltrate or effusion identified. Slightly increased flattening of diaphragm leaves raises question of progressive COPD. This should be correlated clinically. Clips are noted overlying the thoracic inlet area - base of the neck. IMPRESSION: 1. No acute process. 2. Possible mildly progressive COPD. 3. ASD aorta. 4. Osteoporosis. 5. Probable mild pulmonary fibrosis. MTDD
[2016-12-12] MEDS ORDERED: Albuterol/Ipratropium 4 GM Inhalation Spray INH PRN (08:34)
[2016-12-12] MEDS ORDERED: Melatonin 3 MG Tab PO PRN (08:34)
[2016-12-12] MEDS ORDERED: Clopidogrel 75 MG Tab PO SCH (08:45)
--- NOTE | 2016-12-12 09:20 | PCM.PN ---
- General Info Date of Service: 12/12/16 Admission Dx/Problem (Free Text): Patient states she is a little cough today. She still feels depressed. She's not suicidal. She still having diarrhea no nausea, vomiting or abdominal pain. She denies fevers or chills. She denies dysuria, pyuria or hematuria. The nurses report foul-smelling diarrhea. She has been on antibiotics last month. Before this she's had diarrhea for over 2 months. She has a negative C. difficile, negative cultures. Sigmoidoscopy showed pathology some probably infectious inflammation. Patient had a CT scan of the head showed chronic changes that was 2 days ago. She's had a 39 pound weight loss in last 2 months. In the family reports her as being confused which is new. She has a history of dementia and depression. - Patient Data Vitals - most recent: Last Vital Signs Temp 98.3 F 12/12/16 07:46 Pulse 84 12/12/16 04:00 Resp 18 12/12/16 07:46 BP 132/73 12/12/16 07:46 Pulse Ox 96 12/12/16 07:46 Weight - most recent: 120 lb 9.6 oz I&O - last 24 hours: Intake & Output 12/11/16 12/12/16 12/12/16 22:59 06:59 14:59 Intake Total 853 1003 Balance 853 1003 Lab Results last 24 hrs: Laboratory Results - last 24 hr 12/11/16 12/11/16 12/11/16 Range/Units 11:25 11:25 11:25 WBC 6.5 (4.5-12.0) X10-3/uL RBC 4.26 (3.23-5.20) x10(6)uL Hgb 12.9 (11.5-15.5) g/dL Hct 38.2 (30.0-51.3) % MCV 89.7 (80-96) fL MCH 30.2 (27.7-33.6) pg MCHC 33.7 (32.2-35.4) g/dL RDW 13.7 (11.5-15.5) % Plt Count 119 L (125-369) X10(3)uL MPV 10.9 H (7.4-10.4) fL Add Manual Diff Yes Neutrophils % (Manual) 75 (46-82) % Band Neutrophils % 1 (0-6) % Lymphocytes % (Manual) 13 (13-37) % Monocytes % (Manual) 10 (4-12) % Eosinophils % (Manual) 1 (0-5) % Poikilocytosis Few Meridian Cells Few Acanthocytes (Spur) Few Sodium 140 (135-145) mmol/L Potassium 2.9 L (3.5-5.3) mmol/L Chloride 109 (100-110) mmol/L Carbon Dioxide 23 (23-29) mmol/L BUN 18 (8-23) mg/dL Creatinine 0.7 (0.6-1.3) mg/dL Est Cr Clr Drug Dosing 54.92 mL/min Estimated GFR (MDRD) > 60 (>60) BUN/Creatinine Ratio 25.7 H (9-20) Glucose 74 L (80-116) mg/dL Calcium 9.1 (8.6-10.2) mg/dL Total Bilirubin 0.2 (0.1-1.3) mg/dL AST 20 D (5-27) IU/L ALT 18 D (14-26) IU/L Alkaline Phosphatase 64 (56-112) IU/L Troponin I < 0.01 L (0.02-0.06) NG/ML Total Protein 6.2 (6.0-8.0) g/dL Albumin 3.4 (3.2-4.6) g/dL Globulin 2.8 g/dL Albumin/Globulin Ratio 1.2 12/12/16 Range/Units 06:50 WBC (4.5-12.0) X10-3/uL RBC (3.23-5.20) x10(6)uL Hgb (11.5-15.5) g/dL Hct (30.0-51.3) % MCV (80-96) fL MCH (27.7-33.6) pg MCHC (32.2-35.4) g/dL RDW (11.5-15.5) % Plt Count (125-369) X10(3)uL MPV (7.4-10.4) fL Add Manual Diff Neutrophils % (Manual) (46-82) % Band Neutrophils % (0-6) % Lymphocytes % (Manual) (13-37) % Monocytes % (Manual) (4-12) % Eosinophils % (Manual) (0-5) % Poikilocytosis Shahnaz Cells Acanthocytes (Spur) Sodium 142 (135-145) mmol/L Potassium 3.0 L (3.5-5.3) mmol/L Chloride 111 H (100-110) mmol/L Carbon Dioxide 21 L (23-29) mmol/L BUN 17 (8-23) mg/dL Creatinine 0.7 (0.6-1.3) mg/dL Est Cr Clr Drug Dosing 54.92 mL/min Estimated GFR (MDRD) > 60 (>60) BUN/Creatinine Ratio 24.3 H (9-20) Glucose 92 (80-116) mg/dL Calcium 8.1 L (8.6-10.2) mg/dL Total Bilirubin (0.1-1.3) mg/dL AST (5-27) IU/L ALT (14-26) IU/L Alkaline Phosphatase (56-112) IU/L Troponin I (0.02-0.06) NG/ML Total Protein (6.0-8.0) g/dL Albumin (3.2-4.6) g/dL Globulin g/dL Albumin/Globulin Ratio Med Orders - Current: Current Medications Acetaminophen (Tylenol) 650 mg PO Q4H PRN PRN Reason: Pain/Fever Albuterol/Ipratropium (Combivent Respimat) 0 gm INH QID PRN PRN Reason: Dyspnea Aspirin (Halfprin) 81 mg PO DAILY@1200 MYLES Enoxaparin Sodium (Lovenox) 30 mg SUBCUT Q24H [facility] Last Admin: 12/11/16 12:02 Dose: 30 mg Potassium Chloride/Sodium Chloride (Normal Saline With 20 Meq Kcl) 1,000 mls @ 100 mls/hr IV Q10H [facility] Last Admin: 12/12/16 01:04 Dose: 100 mls/hr Loperamide HCl (Imodium) 2 mg PO Q4H PRN PRN Reason: Diarrhea Melatonin (Melatonin) 6 mg PO BEDTIME PRN PRN Reason: Insomnia Non-Formulary Medication (Lidhygenix) 1 applic EYEBOTH MOTH [facility] Potassium Chloride (Klor-Con 10) 30 meq PO BIDMEALS [facility] Sodium Chloride (Saline Flush) 10 ml FLUSH ASDIRECTED PRN PRN Reason: Keep Vein Open Last Admin: 12/11/16 11:59 Dose: 10 ml Discontinued Medications Clopidogrel Bisulfate (Plavix) 75 mg PO MOWEFR [facility] Enoxaparin Sodium (Lovenox) 30 mg SUBCUT DAILY [facility] Sodium Chloride (Normal Saline) 1,000 mls @ 100 mls/hr IV ASDIRECTED [facility] Last Admin: 12/11/16 11:59 Dose: 100 mls/hr - Exam General: alert, oriented, cooperative, no acute distress HEENT: Pupils equal Neck: supple Lungs: Clear to auscultation, Normal respiratory effort. No: Crackles, Rales, Rhonchi Cardiovascular: Regular Rate, Regular Rhythm, No Murmurs Abdomen: bowel sounds present, soft, no tenderness, no distension Back Exam: normal inspection Skin: other (Small 1 cm subcutaneous nodule left buttocks. Not fluctuant.) Neurological: other (Slow speech) Psy/Mental Status: alert, depressed, other (Blunted affect) - Problem List & Annotations (1) Hypokalemia SNOMED Code(s): 09044839 Code(s): E87.6 - HYPOKALEMIA Status: Acute Current Visit: Yes (2) Weight loss SNOMED Code(s): 142176059, 835995561 Code(s): R63.4 - ABNORMAL WEIGHT LOSS Status: Acute Current Visit: Yes (3) Dehydration SNOMED Code(s): 03725553 Code(s): E86.0 - DEHYDRATION Status: Acute Current Visit: No (4) Diarrhea SNOMED Code(s): 00788652 Code(s): R19.7 - DIARRHEA, UNSPECIFIED Status: Acute Current Visit: No Qualifiers: (5) Mental confusion SNOMED Code(s): 478792494 Code(s): R41.0 - DISORIENTATION, UNSPECIFIED Status: Acute Current Visit : No Annotation/Comment:: Multifactorial (6) Weakness SNOMED Code(s): 06289266 Code(s): R53.1 - WEAKNESS Status: Acute Current Visit: No (7) Palliative care status SNOMED Code(s): 110831458 Code(s): Z51.5 - ENCOUNTER FOR PALLIATIVE CARE Status: Acute Current Visit: Yes - Problem List Review Problem List Initiated/Reviewed/Updated: Yes - My Orders Last 24 Hours: My Active Orders 12/11/16 10:47 Patient Status [ADT] Routine Height and Weight [RC] 0600 Oxygen Therapy [RC] PRN Up With Assistance [RC] ASDIRECTED Vital Signs [RC] 04,08,12,16,20,00 Consult to Laborer Electroplating [CONS] Routine Consult to Physician [CONS] Routine Consult to Core Sticker [CONS] Routine OT Evaluation and Treatment [CONS] Routine PT Evaluation and Treatment [CONS] Routine UA W/MICROSCOPIC [URIN] Routine Sodium Chloride 0.9% [Saline Flush] 10 ml FLUSH ASDIRECTED PRN Peripheral IV Insertion Adult [OM.PC] Routine Resuscitation Status Routine 12/11/16 10:48 Intake and Output [RC] 06,14,22 Sequential Compression Device [OM.PC] Per Unit Routine 12/11/16 10:50 Notify Provider Consults [RC] ASDIRECTED 12/11/16 10:53 EKG 12 Lead [EK] Stat 12/11/16 11:00 Enoxaparin [Lovenox] 30 mg SUBCUT Q24H 12/11/16 Lunch Regular Diet [DIET] 12/12/16 08:34 Acetaminophen [Tylenol] 650 mg PO Q4H PRN Albuterol/Ipratropium [Combivent Respimat] 0 gm INH QID PRN Loperamide [Imodium] 2 mg PO Q4H PRN Melatonin 6 mg PO BEDTIME PRN 12/12/16 08:39 Chest Abdomen Pelvis w Cont [CT] Routine 12/12/16 09:15 Potassium Chloride [Klor-Con 10] 30 meq PO BIDMEALS 12/12/16 12:00 Aspirin [Halfprin] 81 mg PO DAILY@1200 12/15/16 08:34 Lidhygenix 1 applic EYEBOTH MOTH - Plan Plan:: 1. C. difficile was ordered and pending. C. difficile precautions are being used currently. 2. CT scan of the abdomen, pelvis, chest to rule out any cancer that we're not finding. 3. Imodium when necessary for diarrhea. 4. OT/PT 5. Psychiatric consultation 6. Continue hydration 7. Continue potassium replacement
[2016-12-12] MEDS ORDERED: Iopamidol 755 Mg/ML 75 ML Bottle IV ONE (11:52)
[2016-12-12] MEDS: Enoxaparin 30 MG/0.3 ML Syringe SUBCUT SCH (12:20)
[2016-12-12] MEDS: Aspirin 81 MG Tab.EC PO SCH (13:21)
[2016-12-12] MEDS: Potassium Chloride 10 MEQ Tab.ER PO SCH ×2 (13:21→18:03)
--- NOTE | 2016-12-12 15:22 | CT ---
INDICATION: 39-pound weight loss in 2 months, chronic diarrhea. CT CHEST/ABDOMEN/PELVIS WITH CONTRAST: Spiral 2.5-mm axial sections were obtained through the chest, abdomen, and pelvis with oral and IV contrast (61 mL Isovue-370 at 1.8 mL per second), with sagittal and coronal reconstructions 12/12/2016, and compared with 10/19/2014 CT chest. Total Exam DLP = 693.72 mGy-cm. CT CHEST: Examination of the chest was obtained by CT as noted above and compared with 10/19/2014. Interstitial markings are similar to the previous study, compatible with interstitial fibrosis or possibly recurrent interstitial edema. Heavy markings remain present at the lung bases, most likely fibrotic in nature and are seen in the lingula and both lower lobes. No consolidating pneumonia or effusion was identified. The heavy markings at the lung bases do appear to be slightly more prominent than on the previous examination in the lower lobes. This may be due to slightly increased pulmonary fibrosis or possibly minimal patchy pneumonia superimposed on fibrosis. This finding should be correlated clinically. The heart did not appear enlarged. Mediastinal lymphadenopathy is again noted, relatively mild and nonspecific. Calcifications are noted in the aorta. Degenerative changes and several levels of disk disease are noted in the mid to lower thoracic spine. IMPRESSION: 1. Increased markings at the lung bases, most likely representing progressive pulmonary fibrosis. It is difficult to entirely exclude minimal patchy bronchopneumonia superimposed on fibrosis, however. Areas in the lung bases showing evidence of bronchiectasis with a honeycombed appearance are again noted. Chronic inflammatory disease suggested. 2. Interstitial fibrotic changes scattered about the lungs in general, compatible with stable pulmonary fibrosis. 3. Degenerative changes and disk disease mid to lower thoracic spine. 4. ASD. CT ABDOMEN AND PELVIS: Examination of the abdomen and pelvis was obtained by CT as noted above, 12/12/2016, and compared with 10/19/2014, revealing suggestion of a tiny fixed hiatal hernia. Evidence of surgery is noted at the hiatus. The gallbladder is absent, compatible with history of its removal. The liver, spleen, pancreas, common bile duct, and adrenal glands appear essentially normal. There is noted a splenule along the posterior aspect of the spleen, present previously. Renal cortical scarring is again noted, much more severe at the upper pole of the left kidney - seen previously. Low-density lesions of small size are noted in the mid pole of the left kidney and at the lower pole of the left kidney, most likely representing benign cystic structures - simple cysts. The largest of these measured 16 mm. Tiny probable benign cyst is noted at the lower pole of the right kidney additionally. Calcifications are noted in the abdominal aorta, splenic artery, iliac, and femoral arteries. A total hip arthroplasty is noted on the right, producing hard beam artifact which limits detail in the lower pelvis. The appendix is not visualized, compatible with history of appendectomy. The uterus is absent, compatible with history of hysterectomy. No evidence of bowel obstruction was identified. In the proximal sigmoid colon , there is a segment which is either contracted or affected by an annular carcinoma, best seen on axial image #237, sagittal images #65 through #73, and coronal images #s 54-65, the latter of which is most difficult to visualize. Colonoscopy is recommended for further evaluation. Additionally, in the rectosigmoid, there is question of some thickening of the wall, which could be on the basis of colitis. Degenerative changes and disk disease are noted in the thoracolumbar spine, with apparent fusion of the L4-5 vertebral bodies also noted. IMPRESSION: 1. 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 Colonoscopy recommended for further evaluation. 2. Post cholecystectomy, hysterectomy, appendectomy. 3. Degenerative changes, disk disease, and fusion thoracolumbar spine, as noted above. 4. ASD. 5. Minimal renal cystic changes and renal cortical scarring. Renal cortical scarring is most severe on the left, as are the cystic changes. The cystic changes, however, are relatively mild. 6. No evidence of metastatic disease is identified. 7. Probable small fixed hiatal hernia. 8. Post left hip total arthroplasty. 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 The uterus is absent, compatible with history of its removal. The appendix is not visualized, compatible with history of its removal. Arterial calcifications are seen. Hard beam artifact from a left-sided CLAUDIA is noted. Report was called to Dr. Lu at 1432 hours, 12/12/2016. [facility]
[2016-12-12] MEDS: Loperamide 2 MG Cap PO PRN (16:53)
--- NOTE | 2016-12-12 17:20 | PCM.SN ---
- Free Text/Narrative Note: Psychiatry recommend stopping Lexapro, trazodone, melatonin, clonidine, and tramadol. Start long-acting Wellbutrin 100 mg SR once a day.
[2016-12-13] MEDS: Acetaminophen 325 MG Tab PO PRN (00:15)
[2016-12-13] MEDS: Loperamide 2 MG Cap PO PRN (00:15)
[2016-12-13] MEDS: NS + KCl 20mEq/L 1,000 ML IV SCH (06:59)
--- NOTE | 2016-12-13 07:41 | PCM.PN ---
- General Info Date of Service: 12/13/16 Admission Dx/Problem (Free Text): Patient states she feels about the same. Still has trouble finding words. Having lots of diarrhea which is confirmed by the nurses. She denies chest pain or shortness of breath. She is a little bit of cough. She denies any abdominal pain, nausea vomiting. Generally fatigued with little appetite. - Patient Data Vitals - most recent: Last Vital Signs Temp 97.7 F 12/13/16 00:00 Pulse 95 12/13/16 00:00 Resp 20 12/13/16 00:00 BP 133/83 12/13/16 00:00 Pulse Ox 93 L 12/13/16 00:00 Weight - most recent: 117 lb 3 oz I&O - last 24 hours: Intake & Output 12/12/16 12/13/16 12/13/16 22:59 06:59 14:59 Intake Total 851 935 Balance 851 935 Lab Results last 24 hrs: Laboratory Results - last 24 hr 12/12/16 12/13/16 Range/Units 13:42 06:40 Sodium 140 (135-145) mmol/L Potassium 3.0 L (3.5-5.3) mmol/L Chloride 113 H (100-110) mmol/L Carbon Dioxide 19 L (23-29) mmol/L BUN 12 (8-23) mg/dL Creatinine 0.5 L (0.6-1.3) mg/dL Est Cr Clr Drug Dosing 76.89 mL/min Estimated GFR (MDRD) > 60 (>60) BUN/Creatinine Ratio 24.0 H (9-20) Glucose 91 (80-116) mg/dL Calcium 7.9 L (8.6-10.2) mg/dL Urine Color Yellow (YELLOW) Urine Appearance Clear (CLEAR) Urine pH 5.0 (5.0-6.5) Ur Specific [place] 1.010 (1.010-1.025) Urine Protein Negative (NEGATIVE) mg/dL Urine Glucose (UA) Normal (NEGATIVE) mg/dL Urine Ketones Negative (NEGATIVE) mg/dL Urine Occult Blood Negative (NEGATIVE) Urine Nitrite Negative (NEGATIVE) Urine Bilirubin Negative (NEGATIVE) Urine Urobilinogen Normal (NEGATIVE) mg/dL Ur Leukocyte Esterase Negative (NEGATIVE) Urine RBC 0-5 (0) Urine WBC 0-5 (0) Ur Squamous Epith Cells Few H (NS,R,O) Urine Bacteria Few H (NS) [place] Results last 24 hrs: Microbiology 12/11/16 14:45 Clostridium difficile Toxin A&B (M) - Final Stool / Feces Med Orders - Current: Current Medications Acetaminophen (Tylenol) 650 mg PO Q4H PRN PRN Reason: Pain/Fever Last Admin: 12/13/16 00:15 Dose: 650 mg Albuterol/Ipratropium (Combivent Respimat) 0 gm INH QID PRN PRN Reason: Dyspnea Aspirin (Halfprin) 81 mg PO DAILY@1200 [facility] Last Admin: 12/12/16 13:21 Dose: 81 mg Bupropion HCl (Wellbutrin Sr) 100 mg PO ONETIME ONE Stop: 12/13/16 09:01 Diphenoxylate HCl/Atropine (Lomotil) 10 ml PO QID PRN PRN Reason: Diarrhea Enoxaparin Sodium (Lovenox) 30 mg SUBCUT Q24H [facility] Last Admin: 12/12/16 12:20 Dose: 30 mg Potassium Chloride/Dextrose/Sod Cl (D5 1/2 Ns W/ 20 Meq/L Kcl) 1,000 mls @ 150 mls/hr IV ASDIRECTED [facility] Non-Formulary Medication (Lidhygenix) 1 applic EYEBOTH MOTH [facility] Potassium Chloride (Klor-Con 10) 30 meq PO TID [facility] Sodium Chloride (Saline Flush) 10 ml FLUSH ASDIRECTED PRN PRN Reason: Keep Vein Open Last Admin: 12/11/16 11:59 Dose: 10 ml Discontinued Medications Clopidogrel Bisulfate (Plavix) 75 mg PO MOWEFR [facility] Enoxaparin Sodium (Lovenox) 30 mg SUBCUT DAILY [facility] Sodium Chloride (Normal Saline) 1,000 mls @ 100 mls/hr IV ASDIRECTED [facility] Last Admin: 12/11/16 11:59 Dose: 100 mls/hr Potassium Chloride/Sodium Chloride (Normal Saline With 20 Meq Kcl) 1,000 mls @ 100 mls/hr IV Q10H [facility] Last Admin: 12/13/16 06:59 Dose: 100 mls/hr Iopamidol (Isovue-370 (76%)) 75 ml IV ONETIME ONE Stop: 12/12/16 11:53 Last Admin: 04/21/17 12:09 Dose: 61 ml Loperamide HCl (Imodium) 2 mg PO Q4H PRN PRN Reason: Diarrhea Last Admin: 12/13/16 00:15 Dose: 2 mg Melatonin (Melatonin) 6 mg PO BEDTIME PRN PRN Reason: Insomnia Potassium Chloride (Klor-Con 10) 30 meq PO BIDMEALS [facility] Last Admin: 12/12/16 18:03 Dose: 30 meq - Exam General: alert, cooperative Lungs: Clear to auscultation, Normal respiratory effort Cardiovascular: Regular Rate, Regular Rhythm, No Murmurs Abdomen: bowel sounds present, soft, no tenderness, no distension Extremities: no edema - Problem List & Annotations (1) Hypokalemia SNOMED Code(s): 01640744 Code(s): E87.6 - HYPOKALEMIA Status: Acute Current Visit: Yes (2) Weight loss SNOMED Code(s): 665105973, 301563661 Code(s): R63.4 - ABNORMAL WEIGHT LOSS Status: Acute Current Visit: Yes (3) Dehydration SNOMED Code(s): 55586745 Code(s): E86.0 - DEHYDRATION Status: Acute Current Visit: No (4) Diarrhea SNOMED Code(s): 64582756 Code(s): R19.7 - DIARRHEA, UNSPECIFIED Status: Acute Current Visit: No Qualifiers: (5) Mental confusion SNOMED Code(s): 369049428 Code(s): R41.0 - DISORIENTATION, UNSPECIFIED Status: Acute Current Visit : No Annotation/Comment:: Multifactorial (6) Weakness SNOMED Code(s): 03611221 Code(s): R53.1 - WEAKNESS Status: Acute Current Visit: No (7) Palliative care status SNOMED Code(s): 767164926 Code(s): Z51.5 - ENCOUNTER FOR PALLIATIVE CARE Status: Acute Current Visit: Yes (8) Mass of colon SNOMED Code(s): 349877240 Code(s): K63.9 - DISEASE OF INTESTINE, UNSPECIFIED Status: Acute Current Visit: Yes Annotation/Comment:: Until proven otherwise - Problem List Review Problem List Initiated/Reviewed/Updated: Yes - My Orders Last 24 Hours: My Active Orders 12/12/16 08:34 Acetaminophen [Tylenol] 650 mg PO Q4H PRN Albuterol/Ipratropium [Combivent Respimat] 0 gm INH QID PRN 12/12/16 12:00 Aspirin [Halfprin] 81 mg PO DAILY@1200 12/13/16 07:32 Atropine/Diphenoxylate [Lomotil] 10 ml PO QID PRN 12/13/16 07:34 Notify Provider Consults [RC] ASDIRECTED Consult to Physician [CONS] Routine 12/13/16 07:45 Dextrose 5%-1/2 Normal Saline with KCl 20 mEq @ 150 mL/Hr (1000 mL) D5 1/2 NS w / 20 mEq/L KCl 1,000 ml IV ASDIRECTED 12/13/16 09:00 Potassium Chloride [Klor-Con 10] 30 meq PO TID buPROPion [Wellbutrin SR] 100 mg PO ONETIME ONE 12/14/16 05:11 BASIC METABOLIC PANEL,BMP [CHEM] AM 12/15/16 08:34 Lidhygenix 1 applic EYEBOTH MOTH - Plan Plan:: 1. C. difficile came back negative so precautions were taken off. 2. Dr. Dennis's consult for colonoscopy. I discussed this with him yesterday and he states he'll see the patient on Thursday. 3. Change fluids to normal saline to D5 half-normal at 125 mL an hour with 20 KCl. 4. Increased her 20 mg of KCl to 3 times a day. 5. Recheck BMP in the morning. 6. Stop Imodium and start Lomotil 4 times a day when necessary. 7. Watch oral intake and add Ensure if needed.
[2016-12-13] MEDS: D5 1/2 NS w/ 20 mEq/L KCl 1,000 ML IV SCH ×3 (08:15→21:50)
[2016-12-13] MEDS: Potassium Chloride 10 MEQ Tab.ER PO SCH ×3 (08:18→21:51)
[2016-12-13] MEDS ORDERED: buPROPion 100 MG Tab.SR PO ONE (09:00)
[2016-12-13] MEDS: Aspirin 81 MG Tab.EC PO SCH (11:29)
[2016-12-13] MEDS: Atropine/Diphenoxylate 0.025-2.5 MG Tab PO PRN ×2 (11:29→17:17)
[2016-12-13] MEDS: Enoxaparin 30 MG/0.3 ML Syringe SUBCUT SCH (11:29)
[2016-12-14] MEDS: Atropine/Diphenoxylate 0.025-2.5 MG Tab PO PRN ×2 (00:50→06:36)
[2016-12-14] MEDS: D5 1/2 NS w/ 20 mEq/L KCl 1,000 ML IV SCH ×4 (04:48→18:42)
[2016-12-14] MEDS: Potassium Chloride 10 MEQ Tab.ER PO SCH ×3 (08:40→17:46)
--- NOTE | 2016-12-14 08:57 | PCM.PN ---
- General Info Date of Service: 12/14/16 Admission Dx/Problem (Free Text): Patient has no concerns today. Nurses report that she had lots of problems last night. She still had trouble thinking and doesn't say a lot today. Nurses also report that she is up 4 pounds and may have some crackles in the bases of her lungs. No leg swelling. - Patient Data Vitals - most recent: Last Vital Signs Temp 98.4 F 12/14/16 04:00 Pulse 93 12/14/16 04:00 Resp 20 12/14/16 04:00 BP 110/74 12/14/16 04:00 Pulse Ox 91 L 12/14/16 04:00 Weight - most recent: 121 lb 3 oz I&O - last 24 hours: Intake & Output 12/13/16 12/14/16 12/14/16 22:59 06:59 14:59 Intake Total 1351 1105 Output Total 200 100 Balance 1351 905 -100 Lab Results last 24 hrs: Laboratory Results - last 24 hr 12/14/16 Range/Units 06:50 Sodium 135 (135-145) mmol/L Potassium 3.6 (3.5-5.3) mmol/L Chloride 112 H (100-110) mmol/L Carbon Dioxide 18 L (23-29) mmol/L BUN 10 (8-23) mg/dL Creatinine 0.6 (0.6-1.3) mg/dL Est Cr Clr Drug Dosing 64.07 mL/min Estimated GFR (MDRD) > 60 (>60) BUN/Creatinine Ratio 16.7 (9-20) Glucose 104 (80-116) mg/dL Calcium 7.8 L (8.6-10.2) mg/dL Med Orders - Current: Current Medications Acetaminophen (Tylenol) 650 mg PO Q4H PRN PRN Reason: Pain/Fever Last Admin: 12/13/16 00:15 Dose: 650 mg Albuterol/Ipratropium (Combivent Respimat) 0 gm INH QID PRN PRN Reason: Dyspnea Aspirin (Halfprin) 81 mg PO DAILY@1200 MYLES Last Admin: 12/13/16 11:29 Dose: 81 mg Diphenoxylate HCl/Atropine (Lomotil 0.025-2.5 Mg) 2 tab PO QID PRN PRN Reason: Diarrhea Last Admin: 12/14/16 06:36 Dose: 2 tab Enoxaparin Sodium (Lovenox) 30 mg SUBCUT Q24H [facility] Last Admin: 12/13/16 11:29 Dose: 30 mg Potassium Chloride/Dextrose/Sod Cl (D5 1/2 Ns W/ 20 Meq/L Kcl) 1,000 mls @ 70 mls/hr IV Q7H [facility] Last Admin: 12/14/16 04:48 Dose: 150 mls/hr Non-Formulary Medication (Lidhygenix) 1 applic EYEBOTH MOTH [facility] Sodium Chloride (Saline Flush) 10 ml FLUSH ASDIRECTED PRN PRN Reason: Keep Vein Open Last Admin: 12/11/16 11:59 Dose: 10 ml Discontinued Medications Bupropion HCl (Wellbutrin Sr) 100 mg PO ONETIME ONE Stop: 12/13/16 09:01 Last Admin: 12/13/16 08:17 Dose: 100 mg Clopidogrel Bisulfate (Plavix) 75 mg PO MOWEFR [facility] Enoxaparin Sodium (Lovenox) 30 mg SUBCUT DAILY [facility] Sodium Chloride (Normal Saline) 1,000 mls @ 100 mls/hr IV ASDIRECTED [facility] Last Admin: 12/11/16 11:59 Dose: 100 mls/hr Potassium Chloride/Sodium Chloride (Normal Saline With 20 Meq Kcl) 1,000 mls @ 100 mls/hr IV Q10H [facility] Last Admin: 12/13/16 06:59 Dose: 100 mls/hr Iopamidol (Isovue-370 (76%)) 75 ml IV ONETIME ONE Stop: 12/12/16 11:53 Last Admin: 12/12/16 12:09 Dose: 61 ml Loperamide HCl (Imodium) 2 mg PO Q4H PRN PRN Reason: Diarrhea Last Admin: 12/13/16 00:15 Dose: 2 mg Melatonin (Melatonin) 6 mg PO BEDTIME PRN PRN Reason: Insomnia Potassium Chloride (Klor-Con 10) 30 meq PO BIDMEALS [facility] Last Admin: 12/12/16 18:03 Dose: 30 meq Potassium Chloride (Klor-Con 10) 30 meq PO TID [facility] Last Admin: 12/14/16 08:40 Dose: 30 meq - Exam General: alert, cooperative Lungs: Clear to auscultation, Normal respiratory effort Cardiovascular: Regular Rate, Regular Rhythm, No Murmurs Extremities: no edema - Problem List & Annotations (1) Hypokalemia SNOMED Code(s): 19463275 Code(s): E87.6 - HYPOKALEMIA Status: Acute Current Visit: Yes (2) Weight loss SNOMED Code(s): 468732637, 676361296 Code(s): R63.4 - ABNORMAL WEIGHT LOSS Status: Acute Current Visit: Yes (3) Dehydration SNOMED Code(s): 25385088 Code(s): E86.0 - DEHYDRATION Status: Acute Current Visit: No (4) Diarrhea SNOMED Code(s): 05958956 Code(s): R19.7 - DIARRHEA, UNSPECIFIED Status: Acute Current Visit: No Qualifiers: (5) Mental confusion SNOMED Code(s): 878196309 Code(s): R41.0 - DISORIENTATION, UNSPECIFIED Status: Acute Current Visit : No Annotation/Comment:: Multifactorial (6) Weakness SNOMED Code(s): 93254525 Code(s): R53.1 - WEAKNESS Status: Acute Current Visit: No (7) Palliative care status SNOMED Code(s): 787117721 Code(s): Z51.5 - ENCOUNTER FOR PALLIATIVE CARE Status: Acute Current Visit: Yes (8) Mass of colon SNOMED Code(s): 919342503 Code(s): K63.9 - DISEASE OF INTESTINE, UNSPECIFIED Status: Acute Current Visit: Yes Annotation/Comment:: Until proven otherwise - Problem List Review Problem List Initiated/Reviewed/Updated: Yes - My Orders Last 24 Hours: My Active Orders 12/14/16 09:00 Potassium Chloride [Klor-Con 10] 30 meq PO BID 12/14/16 Lunch Clear Liquid Diet [DIET] 12/15/16 08:34 Lidhygenix 1 applic EYEBOTH MOTH - Plan Plan:: 1. decrease IV fluids D5 half-normal with 20 KCl to 70 mL an hour. 2. Start regular food and start clear liquids. 3. Will discuss with Dr. Dennis his colonoscopy prep. 4. I tried to call the daughter yesterday Annette name is Margret she is the [employer] territory manager. The line was busy. I will try again today.
[2016-12-14] MEDS ORDERED: Bisacodyl 5 MG Tab PO ONE (09:04)
[2016-12-14] MEDS ORDERED: Polyethylene Glycol 3350 Powder 17 GM Packet PO ONE (09:05)
--- NOTE | 2016-12-14 09:07 | PCM.SN ---
- Free Text/Narrative Note: Discussed patient's care and findings up to this point with the patient's daughter Rosalia Bales [place]. Her phone #[phone]. She is okay with proceeding with a colonoscopy. She states that time to reach her are all day Thursday and Thursday. Thursday to Thursday 9-11 AM our time and Saturdays and Sundays all day.
--- NOTE | 2016-12-14 09:09 | PCM.CONS ---
H&P History of Present Illness - General Admit Problem/Dx: Patient has no concerns today. Nurses report that she had lots of problems last night. She still had trouble thinking and doesn't say a lot today. Nurses also report that she is up 4 pounds and may have some crackles in the bases of her lungs. No leg swelling. Source of Information: Old records - History of Present Illness Initial Comments - Free Text/Narative: Pt well known to me having been seen in the past for diarrhea. Recent CT scan ? mass in sigmoid, C scope recommended. Pt not very talkative this am. buttocks ,right Pain Score (Numeric/FACES): 3 - Related Data Allergies/Adverse Reactions: Allergies Allergy/AdvReac Type Severity Reaction Status Date / Time bacitracin Allergy Itching Verified 12/11/16 12:34 ciprofloxacin [From Cipro] Allergy Diarrhea Verified 12/11/16 12:34 ciprofloxacin HCl Allergy Diarrhea Verified 12/11/16 12:34 [From Cipro] morphine Allergy Headache Verified 12/11/16 12:34 Home Medications: Home Meds Cholecalciferol (Vitamin D3) [Vitamin D3] 3,000 unit PO 1800 07/11/14 [History] Clopidogrel [Plavix] 75 mg PO MOWEFR 07/11/14 [History] Donepezil HCl 10 mg PO BEDTIME 07/11/14 [History] Furosemide [Lasix] 20 mg PO DAILY 07/11/14 [History] Memantine HCl [Namenda Xr] 21 mg PO BEDTIME 07/11/14 [History] Spironolactone [Aldactone] 12.5 mg PO DAILY 07/11/14 [History] clonazePAM [Klonopin] 0.5 mg PO BEDTIME 07/11/14 [History] traZODone 100 mg PO BEDTIME 07/11/14 [History] Albuterol/Ipratropium [Combivent Respimat] 2 puff IH QID 02/26/16 [History] Leflunomide [Arava] 20 mg PO DAILY 02/26/16 [History] Aspirin [Lo-Dose Aspirin EC] 81 mg PO DAILY@1200 05/23/16 [History] Lidhygenix 1 applic EYEBOTH MOTH 05/23/16 [History] Magnesium 250 mg PO BIDMEALS 05/23/16 [History] Multivitamin [Daily Elzbieta] 1 tab PO DAILY 05/23/16 [History] Oxybutynin 5 mg PO BID 05/23/16 [History] Potassium Chloride [Klor-Con M20] 30 meq PO BIDMEALS 05/23/16 [History] Ranitidine [Zantac] 150 mg PO BIDMEALS 05/23/16 [History] Simvastatin [Zocor] 60 mg PO BEDTIME 05/23/16 [History] cycloSPORINE [Restasis] 1 drop EYEBOTH BID 05/23/16 [History] Acetaminophen [Tylenol] 650 mg PO Q4H PRN 11/12/16 [History] Acyclovir 400 mg PO QID PRN 11/12/16 [History] Calcium Carbonate [Calcium] 600 mg PO BIDMEALS 11/12/16 [History] Carboxymethylcellulos/Glycerin [Refresh Optive] 1 drop EYEBOTH QID PRN 11/12/16 [History] Cliradex Foam 1 applic TOP MOTH 11/12/16 [History] Escitalopram [Lexapro] 10 mg PO BEDTIME 11/12/16 [History] Celecoxib [CeleBREX] 200 mg PO DAILY #30 cap 11/14/16 [Rx] Melatonin 6 mg PO BEDTIME PRN #30 tablet 11/14/16 [Rx] Loperamide [Imodium] 2 mg PO Q4H PRN 12/11/16 [History] Miconazole Nitrate [Aloe Sparks] 1 applic TP ASDIRECTED PRN 12/11/16 [History] buPROPion [Wellbutrin] 100 mg PO 08,18 12/11/16 [History] traMADol [Ultram] 50 mg PO QID 12/11/16 [History] Past Medical History HEENT History: Reports: Cataract, Macular degeneration Cardiovascular History: Reports: Bypass, Hypertension, Other (see below) Other Cardiovascular History: BYPASS GRAFT WVEIN SUBCLAVIAN-BRACHIAL, CAROTID ENDARTERECTOMY, CVD Respiratory History: Reports: COPD, Other (see below) Other Respiratory History: CHRONIC AIRWAY OBSTRUCTION, IPF Gastrointestinal History: Reports: Diverticulosis, GERD Other Gastrointestinal History: DYSPHAGIA Other Genitourinary History: BLADDER TUMOR,GROSS HEMATURIA, URINARY INCONTINENCE , RECURRENT UTI, OAB, 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 History: Reports: Musculoskeletal History: Reports: Back pain, chronic, Fracture Other Musculoskeletal History: LUMBAGO Neurological History: Reports: CVA, Speech problems Other Neuro History: EXPRESSIVE APHAGIA, GENERALIZED ANXIETY DISORDER Psychiatric History: Reports: Dementia, Depression Dermatologic History: Reports: Other (see below) Other Dermatologic History: CANDIDIASIS OF SKIN AND NAILS - Infectious Disease History Infectious Disease History: Reports: Chicken pox, Measles - Past Surgical History HEENT Surgical History: Reports: Cataract surgery, Tonsillectomy, Other (see below) Other HEENT Surgeries/Procedures: RECONSTRUCTION LEFT EAR, ESOPHAGEAL MANOMETRY, EGD, LAP FILIPE, BRAIN SURGERY Cardiovascular Surgical History: Reports: Carotid endarterectomy Other Cardiovascular Surgeries/Procedures: SEE WRITTEN H&P Respiratory Surgical History: Reports: None GI Surgical History: Reports: Appendectomy, Cholecystectomy, EGD Female Surgical History: Reports: Hysterectomy Other Female Surgeries/Procedures: TUR BLADDER Musculoskeletal Surgical History: Reports: Carpal tunnel, Hip replacement, Other (see below) Other Musculoskeletal Surgeries/Procedures:: ARTHRODESIS WRIST, OSTEOPLASTY RADIUS & ULNA SHORTENING,BACK SURGERY, ARTHROPLASTY KNEE, TOTAL LEFT HIP, WRIST FUSION, LEFT, THROMBOPHLEBITIS Social & Family History - Family History Family Medical History: Noncontributory HEENT: Reports: Impaired vision Cardiac: Reports: [place] Respiratory: Reports: None OBGYN: Reports: Other Oncologic Family History: zmot - Tobacco Use Smoking Status *Q: Former Smoker Years of Tobacco use: 54 Packs/Tins Daily: 2 Used Tobacco, but Quit: No Month Tobacco Last Used: unknown Second Hand Smoke Exposure: No - Caffeine Use Caffeine Use: Reports: Soda Other Caffeine Use: DIET SODA'S IN LARGE AMOUNTS PER DAY. - Alcohol Use Days Per Week of Alcohol Use: 0 - Recreational Drug Use Recreational Drug Use: No H&P Review of Systems - Review of Systems: Review Of Systems: Unable To Obtain Exam - Exam Exam: See Below - Vital Signs Vital Signs: Last Vital Signs Temp 36.9 C 12/14/16 04:00 Pulse 93 12/14/16 04:00 Resp 20 12/14/16 04:00 BP 110/74 12/14/16 04:00 Pulse Ox 91 L 12/14/16 04:00 Weight: 54.97 kg - Exam General: alert Lungs: Clear to auscultation, Normal respiratory effort Cardiovascular: regular rate, regular rhythm Abdomen: normal bowel sounds, soft - Patient Data Lab Results last 24 hrs: Laboratory Results - last 24 hr 12/14/16 Range/Units 06:50 Sodium 135 (135-145) mmol/L Potassium 3.6 (3.5-5.3) mmol/L Chloride 112 H (100-110) mmol/L Carbon Dioxide 18 L (23-29) mmol/L BUN 10 (8-23) mg/dL Creatinine 0.6 (0.6-1.3) mg/dL Est Cr Clr Drug Dosing 64.07 mL/min Estimated GFR (MDRD) > 60 (>60) BUN/Creatinine Ratio 16.7 (9-20) Glucose 104 (80-116) mg/dL Calcium 7.8 L (8.6-10.2) mg/dL Result Diagrams: 12/11/16 11:25 12/14/16 06:50 Consult PN Assessment/Plan Procedures: Procedures AIRWAY INHALATION TREATMENT (07/11/14) ANESTH UPPER GI VISUALIZE (02/27/16) ASSAY OF CREATININE (10/19/14) ASSAY OF NATRIURETIC PEPTIDE (11/13/16) ASSAY OF TROPONIN QUANT (11/13/16) ASSAY THYROID STIM HORMONE (07/11/14) BLOOD GASES ANY COMBINATION (11/13/16) CHEST X-RAY 2VW FRONTAL&LATL (11/13/16) CLOSTRIDIUM AG IA (11/13/16) COMPLETE CBC AUTOMATED (07/11/14) COMPLETE CBC W/AUTO DIFF WBC (11/13/16) COMPREHEN METABOLIC PANEL (11/13/16) CONTRAST X-RAY ESOPHAGUS (02/13/16) CT HEAD/BRAIN W/O DYE (12/10/16) CT THORAX W/DYE (10/19/14) CT THORAX W/O DYE (08/10/14) EGD BIOPSY SINGLE/MULTIPLE (02/27/16) ELECTROCARDIOGRAM TRACING (11/13/16) EVALUATE PT USE OF INHALER (07/11/14) GAIT TRAINING THERAPY (11/13/16) HYDRATE IV INFUSION ADD-ON (05/23/16) HYDRATION IV INFUSION INIT (05/23/16) METABOLIC PANEL TOTAL CA (11/13/16) MICROBE SUSCEPTIBLE GUSTAVO (11/13/16) MRI PELVIS W/O DYE (06/21/13) OT EVAL LOW COMPLEX 30 MIN (11/13/16) PROTHROMBIN TIME (05/23/16) PT EVAL LOW COMPLEX 20 MIN (11/13/16) ROUTINE VENIPUNCTURE (11/13/16) THER/PROPH/DIAG INJ SC/IM (11/13/16) THERAPEUTIC ACTIVITIES (11/13/16) THERAPEUTIC EXERCISES (11/13/16) THROMBOPLASTIN TIME PARTIAL (05/23/16) URINALYSIS AUTO W/O SCOPE (05/23/16) URINALYSIS AUTO W/SCOPE (11/13/16) URINE BACTERIA CULTURE (11/13/16) URINE CULTURE/COLONY COUNT (11/13/16) US EXAM ABDO BACK WALL COMP (09/04/14) VITAL CAPACITY TEST (07/11/14) WITHDRAWAL OF ARTERIAL BLOOD (11/13/16) (1) Mass of colon SNOMED Code(s): 540617731 Code(s): K63.9 - DISEASE OF INTESTINE, UNSPECIFIED Current Visit: Yes Comment: Until proven otherwise (2) Diarrhea SNOMED Code(s): 45503766 Code(s): R19.7 - DIARRHEA, UNSPECIFIED Current Visit: No Qualifiers: Diarrhea type: unspecified type Problem List Initiated/Reviewed/Updated: Yes My Orders last 24 hours: My Active Orders 12/14/16 09:04 Verify Patient Consent Obtain [RC] ASDIRECTED Bisacodyl [Dulcolax] 10 mg PO ONETIME ONE 12/14/16 09:05 Polyethylene Glycol 3350 [MiraLAX] 238 gm PO ONETIME ONE 12/14/16 Lunch NPO After Midnight [Nothing per Oral After Midnight Diet] [DIET] Plan: C scope in the am.
[2016-12-14] MEDS ORDERED: Polyethylene Glycol 3350 Powder 238 GM Bot PO ONE (10:00)
[2016-12-14] MEDS: Enoxaparin 30 MG/0.3 ML Syringe SUBCUT SCH (11:29)
[2016-12-14] MEDS: Aspirin 81 MG Tab.EC PO SCH (11:29)
[2016-12-15] MEDS: D5 1/2 NS w/ 20 mEq/L KCl 1,000 ML IV SCH (06:44)
--- NOTE | 2016-12-15 07:50 | PCM.PN ---
- General Info Date of Service: 12/15/16 Subjective Update: Patient states her diarrhea is better today. He is pretty lethargic and does not say much to ask her. She denies chest pain or shortness of breath. - Patient Data Vitals - most recent: Last Vital Signs Temp 97.4 F 12/15/16 04:00 Pulse 84 12/15/16 04:00 Resp 30 H 12/15/16 04:00 BP 138/84 12/15/16 04:00 Pulse Ox 90 L 12/15/16 04:00 Weight - most recent: 120 lb 6.4 oz I&O - last 24 hours: Intake & Output 12/14/16 12/15/16 12/15/16 22:59 06:59 14:59 Intake Total 642 1673 Output Total 1620 Balance -978 1673 Med Orders - Current: Current Medications Acetaminophen (Tylenol) 650 mg PO Q4H PRN PRN Reason: Pain/Fever Last Admin: 12/13/16 00:15 Dose: 650 mg Albuterol/Ipratropium (Combivent Respimat) 0 gm INH QID PRN PRN Reason: Dyspnea Aspirin (Halfprin) 81 mg PO DAILY@1200 [facility] Last Admin: 12/14/16 11:29 Dose: 81 mg Diphenoxylate HCl/Atropine (Lomotil 0.025-2.5 Mg) 2 tab PO QID PRN PRN Reason: Diarrhea Last Admin: 12/14/16 06:36 Dose: 2 tab Enoxaparin Sodium (Lovenox) 30 mg SUBCUT Q24H [facility] Last Admin: 12/14/16 11:29 Dose: 30 mg Potassium Chloride/Dextrose/Sod Cl (D5 1/2 Ns W/ 20 Meq/L Kcl) 1,000 mls @ 70 mls/hr IV Q7H [facility] Last Admin: 12/15/16 06:44 Dose: 70 mls/hr Non-Formulary Medication (Lidhygenix) 1 applic EYEBOTH MOTH [facility] Potassium Chloride (Klor-Con 10) 30 meq PO BIDMEALS [facility] Last Admin: 12/14/16 17:46 Dose: 30 meq Sodium Chloride (Saline Flush) 10 ml FLUSH ASDIRECTED PRN PRN Reason: Keep Vein Open Last Admin: 12/11/16 11:59 Dose: 10 ml Discontinued Medications Bisacodyl (Dulcolax) 10 mg PO ONETIME ONE Stop: 12/14/16 09:05 Last Admin: 12/14/16 09:24 Dose: 10 mg Bupropion HCl (Wellbutrin Sr) 100 mg PO ONETIME ONE Stop: 12/13/16 09:01 Last Admin: 12/13/16 08:17 Dose: 100 mg Clopidogrel Bisulfate (Plavix) 75 mg PO MOWEFR [facility] Enoxaparin Sodium (Lovenox) 30 mg SUBCUT DAILY [facility] Sodium Chloride (Normal Saline) 1,000 mls @ 100 mls/hr IV ASDIRECTED [facility] Last Admin: 12/11/16 11:59 Dose: 100 mls/hr Potassium Chloride/Sodium Chloride (Normal Saline With 20 Meq Kcl) 1,000 mls @ 100 mls/hr IV Q10H [facility] Last Admin: 12/13/16 06:59 Dose: 100 mls/hr Iopamidol (Isovue-370 (76%)) 75 ml IV ONETIME ONE Stop: 12/12/16 11:53 Last Admin: 12/12/16 12:09 Dose: 61 ml Loperamide HCl (Imodium) 2 mg PO Q4H PRN PRN Reason: Diarrhea Last Admin: 12/13/16 00:15 Dose: 2 mg Melatonin (Melatonin) 6 mg PO BEDTIME PRN PRN Reason: Insomnia Polyethylene Glycol (Miralax) 238 gm PO ONETIME ONE Stop: 12/14/16 10:01 Last Admin: 12/14/16 10:20 Dose: 238 gm Potassium Chloride (Klor-Con 10) 30 meq PO BIDMEALS [facility] Last Admin: 12/12/16 18:03 Dose: 30 meq Potassium Chloride (Klor-Con 10) 30 meq PO TID [facility] Last Admin: 12/14/16 08:40 Dose: 30 meq - Exam General: alert, cooperative Lungs: Clear to auscultation, Normal respiratory effort Cardiovascular: Regular Rate, Regular Rhythm, No Murmurs Extremities: no edema Skin: rash (Perineum) - Problem List & Annotations (1) Hypokalemia SNOMED Code(s): 47698920 Code(s): E87.6 - HYPOKALEMIA Status: Acute Current Visit: Yes (2) Weight loss SNOMED Code(s): 485538234, 555113592 Code(s): R63.4 - ABNORMAL WEIGHT LOSS Status: Acute Current Visit: Yes (3) Dehydration SNOMED Code(s): 05306996 Code(s): E86.0 - DEHYDRATION Status: Acute Current Visit: No (4) Diarrhea SNOMED Code(s): 46867194 Code(s): R19.7 - DIARRHEA, UNSPECIFIED Status: Acute Current Visit: No Qualifiers: Diarrhea type: unspecified type (5) Mental confusion SNOMED Code(s): 377781104 Code(s): R41.0 - DISORIENTATION, UNSPECIFIED Status: Acute Current Visit : No Annotation/Comment:: Multifactorial (6) Weakness SNOMED Code(s): 81926678 Code(s): R53.1 - WEAKNESS Status: Acute Current Visit: No (7) Palliative care status SNOMED Code(s): 747294106 Code(s): Z51.5 - ENCOUNTER FOR PALLIATIVE CARE Status: Acute Current Visit: Yes (8) Mass of colon SNOMED Code(s): 969637162 Code(s): K63.9 - DISEASE OF INTESTINE, UNSPECIFIED Status: Acute Current Visit: Yes Annotation/Comment:: Until proven otherwise (9) Contact dermatitis SNOMED Code(s): 88352992 Code(s): L25.9 - UNSPECIFIED CONTACT DERMATITIS, UNSPECIFIED CAUSE Status: Acute Current Visit: Yes - Problem List Review Problem List Initiated/Reviewed/Updated: Yes - My Orders Last 24 Hours: My Active Orders 12/14/16 09:00 Potassium Chloride [Klor-Con 10] 30 meq PO BIDMEALS 12/15/16 08:34 Lidhygenix 1 applic EYEBOTH MOTH - Plan Plan:: 1. Desitin and normal nursing care to the perineum on her rash. 2. Colonoscopy today.
[2016-12-15] MEDS ORDERED: Lidocaine 2% 100 MG/5 ML Syringe IVPUSH ONE (08:00)
[2016-12-15] MEDS ORDERED: Propofol 200 MG/20 ML SDV IV ONE (08:00)
--- NOTE | 2016-12-15 08:27 | PCM.OPNOTE ---
- General Post-Op/Procedure Note Date of Surgery/Procedure: 12/15/16 Operative Procedure(s): c scope with random biopsies Findings: normal colon no evidence of sigmoid tumor. Pre Op Diagnosis: hx of chronic diarrhea. ? tumor sigmoid colon on ct scan Post-Op Diagnosis: normal colon. no evidence of sigmoid tumor. Anesthesia Technique: MAC Primary Surgeon: Murtaza Dennis Anesthesia Provider: Amparo Jaramillo Pathology: random colon biopsies Complications: None Condition: Good Free Text/Narrative:: Intake & Output 12/14/16 12/15/16 12/15/16 22:59 06:59 14:59 Intake Total 642 1673 Output Total 1620 150 Balance -978 1673 -150 see dictation
[2016-12-15] MEDS ORDERED: [UNRECOGNIZED DRUG - OTHER] EYEBOTH SCH (08:34)
[2016-12-15] MEDS: Potassium Chloride 10 MEQ Tab.ER PO SCH (10:55)
[2016-12-15] MEDS: Acetaminophen 325 MG Tab PO PRN (10:56)
[2016-12-15] MEDS: Aspirin 81 MG Tab.EC PO SCH (11:00)
[2016-12-15 11:25] VITALS: BP 146/75
--- NOTE | 2016-12-15 12:30 | OR ---
DATE OF OPERATION: 12/15/2016 SURGEON: Murtaza Dennis MD PROCEDURE PERFORMED: Colonoscopy. PREOPERATIVE DIAGNOSIS: History of chronic diarrhea and questionable mass in sigmoid colon on recent CT scan. POSTOPERATIVE DIAGNOSIS: Normal colon. INDICATIONS FOR PROCEDURE: This is a 76-year-old white female, who was admitted with a history of chronic diarrhea and dehydration. Recent CT scan demonstrated a questionable mass in the sigmoid colon, and while she has had a recent flexible sigmoidoscopy, we were not sure if we had cleared this area, so she was offered and accepted colonoscopy. DESCRIPTION OF OPERATION: After an excellent IV sedation was administered, digital rectal exam was performed. No marked abnormality was noted. Flexible colonoscope was inserted and advanced to the cecum without difficulty. Attempts to intubate the ileocecal valve, were not successful. The scope was then slowly withdrawn. The following findings were noted. Ascending colon, unremarkable. Random biopsies were taken. Transverse colon, unremarkable. Random biopsies taken. Descending colon, unremarkable. Random biopsies taken. Sigmoid unremarkable. Random biopsies taken. Rectum and anus unremarkable. Colon was deflated, scope was removed. The patient tolerated the procedure well. /[id number] /MODL
--- NOTE | 2016-12-15 13:19 | PCM.SN ---
- Free Text/Narrative Note: I discussed care with the patient's daughter was a power of corporate associate attorney. I told her that the colonoscopy is normal. I'm nothing. For her. And suggested we transfer her to [facility] to get some consultations from's specialist especially GI. She concurs. So I called [facility] and talk to Dr. Rojas. He agreed to take her in transfer. This would be to [facility]
--- NOTE | 2016-12-15 13:27 | PCM.DCSUM1 ---
Discharge Summary - Hospital Course Free Text/Narrative:: Hospital course-I stopped most of her medications to see if this would help her diarrhea. I reviewed her head CT that did not show any subdural hematoma only chronic changes. I ordered a CT scan of her chest, abdomen and pelvis. 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 She previously had a sigmoidoscopy that was negative. Surgery was consult. It was over the weekends with a wait a couple days for colonoscopy. Patient had diarrhea stools will she was here. We try Imodium to start with and it was negative. Tried Lomotil she continued to have the stools. She had very poor by mouth intake and use IV fluids. She was hypokalemic so we added potassium to her IV fluid and given by mouth and it corrected. Patient had a C. diff that was negative. She had a C. diff and stool culture in the clinic over a month before that was also negative. Patient has a history of dementia. I note her for 3 years and have seen no sign of it. But since she's had the diarrhea she is been more confused, forgetful and had increasing depression. She was initially on Celexa for depression but started getting worse. She was switched her Lexapro and then Wellbutrin was added. In the hospitalization she had a psychiatric consultation and recommended stopping Lexapro and continue Wellbutrin. Also recommended stopping trazodone, melatonin and benzodiazepines. None of this made her any better. Colonoscopy was done today. It was negative. Biopsies were done and pending. Because I was not able to offer this patient anymore at our facility. I called her daughter who is the power of registered massage therapist and she agreed that we should transfer to higher level of care for some consultations. I discussed the care with the hospitalist . He agreed to accept her to [facility] in [place]. She'll be transferred by ambulance due to her poor condition not able to walk very well and dehydration. Brief History: 76-year-old female admitted for failure to thrive. She said weeks of weight loss, chronic diarrhea, recurrent dehydration and feeling poorly. She was significant today for the same reason and admitted by Dr. Lu directly. She is disoriented to time and therefore history taking is mostly from old records and speaking to her physician and the nursing staff. Is no report of any fever vomiting cough. She has a history of chronic back pain, depression, and oxygen-dependent COPD have been difficult to control. - Discharge Data Discharge Date: 12/15/16 Discharge Disposition: DC/Tfer to Acute Hospital 02 Condition: Fair - Discharge Diagnosis/Problem(s) (1) Hypokalemia SNOMED Code(s): 37990372 ICD Code: E87.6 - HYPOKALEMIA Status: Acute Current Visit: Yes (2) Weight loss SNOMED Code(s): 679548443, 693090636 ICD Code: R63.4 - ABNORMAL WEIGHT LOSS Status: Acute Current Visit: Yes (3) Dehydration SNOMED Code(s): 16403747 ICD Code: E86.0 - DEHYDRATION Status: Acute Current Visit: No (4) Diarrhea SNOMED Code(s): 27683806 ICD Code: R19.7 - DIARRHEA, UNSPECIFIED Status: Acute Current Visit: No Qualifiers: Diarrhea type: unspecified type (5) Mental confusion SNOMED Code(s): 622199821 ICD Code: R41.0 - DISORIENTATION, UNSPECIFIED Status: Acute Current Visit : No Problem Details: Multifactorial (6) Weakness SNOMED Code(s): 08250193 ICD Code: R53.1 - WEAKNESS Status: Acute Current Visit: No (7) Palliative care status SNOMED Code(s): 806681999 ICD Code: Z51.5 - ENCOUNTER FOR PALLIATIVE CARE Status: Acute Current Visit: Yes (8) Mass of colon SNOMED Code(s): 137536923 ICD Code: K63.9 - DISEASE OF INTESTINE, UNSPECIFIED Status: Acute Current Visit: Yes Problem Details: Until proven otherwise (9) Contact dermatitis SNOMED Code(s): 27847441 ICD Code: L25.9 - UNSPECIFIED CONTACT DERMATITIS, UNSPECIFIED CAUSE Status : Acute Current Visit: Yes - Patient Summary/Data Operative Procedure(s) Performed: c scope with random biopsies Consults: Consultations 12/11/16 10:47 Consult to Building Engineer [CONS] Routine Comment: Physician Instructions: Quantity: Consult to Physician [CONS] Routine Consulting Provider: Carrington Michaels Courtesy Call Completed to Consulting Physician: No Consult to Graphic Illustrator [CONS] Routine Comment: Physician Instructions: OT Evaluation and Treatment [CONS] Routine Please Evaluate and Treat. OT Reason for Consult: Strengthening This query below is only for informational purposes and is not editable. PT Evaluation and Treatment [CONS] Routine Please Evaluate and Treat. PT Reason for Consult: Strengthening This query below is only for informational purposes and is not editable. 12/13/16 07:34 Consult to Physician [CONS] Routine Consulting Provider: Murtaza Dennis Call Completed to Consulting Physician: Yes - Patient Instructions Diet: Regular Diet as Tolerated Activity: As Tolerated Driving: Do Not Drive Showering/Bathing: May Shower Notify Provider of: Fever, Increased Pain Other/Special Instructions: 1. Transfer to [facility] by [facility] ambulance due to severe weakness, dehydration and need a higher level of care for the patient including specialty consultations. Dr. Rojas excepted. 2. Continue the current medicines she is on. But please send the patient's medication list with her. - Discharge Plan Home Medications: Home Meds Cholecalciferol (Vitamin D3) [Vitamin D3] 3,000 unit PO 1800 07/11/14 [History] Clopidogrel [Plavix] 75 mg PO MOWEFR 07/11/14 [History] Donepezil HCl 10 mg PO BEDTIME 07/11/14 [History] Furosemide [Lasix] 20 mg PO DAILY 07/11/14 [History] Memantine HCl [Namenda Xr] 21 mg PO BEDTIME 07/11/14 [History] Spironolactone [Aldactone] 12.5 mg PO DAILY 07/11/14 [History] clonazePAM [Klonopin] 0.5 mg PO BEDTIME 07/11/14 [History] traZODone 100 mg PO BEDTIME 07/11/14 [History] Albuterol/Ipratropium [Combivent Respimat] 2 puff IH QID 02/26/16 [History] Leflunomide [Arava] 20 mg PO DAILY 02/26/16 [History] Aspirin [Lo-Dose Aspirin EC] 81 mg PO DAILY@1200 05/23/16 [History] Lidhygenix 1 applic EYEBOTH MOTH 05/23/16 [History] Magnesium 250 mg PO BIDMEALS 05/23/16 [History] Multivitamin [Daily Elzbieta] 1 tab PO DAILY 05/23/16 [History] Oxybutynin 5 mg PO BID 05/23/16 [History] Potassium Chloride [Klor-Con M20] 30 meq PO BIDMEALS 05/23/16 [History] Ranitidine [Zantac] 150 mg PO BIDMEALS 05/23/16 [History] Simvastatin [Zocor] 60 mg PO BEDTIME 05/23/16 [History] cycloSPORINE [Restasis] 1 drop EYEBOTH BID 05/23/16 [History] Acetaminophen [Tylenol] 650 mg PO Q4H PRN 11/12/16 [History] Acyclovir 400 mg PO QID PRN 11/12/16 [History] Calcium Carbonate [Calcium] 600 mg PO BIDMEALS 11/12/16 [History] Carboxymethylcellulos/Glycerin [Refresh Optive] 1 drop EYEBOTH QID PRN 11/12/16 [History] Cliradex Foam 1 applic TOP MOTH 11/12/16 [History] Escitalopram [Lexapro] 10 mg PO BEDTIME 11/12/16 [History] Celecoxib [CeleBREX] 200 mg PO DAILY #30 cap 11/14/16 [Rx] Melatonin 6 mg PO BEDTIME PRN #30 tablet 11/14/16 [Rx] Loperamide [Imodium] 2 mg PO Q4H PRN 12/11/16 [History] Miconazole Nitrate [Aloe [place]] 1 applic TP ASDIRECTED PRN 12/11/16 [History] buPROPion [Wellbutrin] 100 mg PO 12/11/16 [History] traMADol [Ultram] 50 mg PO QID 12/11/16 [History] - Patient Data Vitals - Most Recent: Last Vital Signs Temp 97.4 F 12/15/16 11:20 Pulse 90 12/15/16 11:20 Resp 22 H 12/15/16 11:20 BP 146/75 H 12/15/16 11:20 Pulse Ox 93 L 12/15/16 11:20 Weight - Most Recent: 126 lb 3 oz I&O - Last 24 hours: Intake & Output 12/14/16 12/15/16 12/15/16 22:59 06:59 14:59 Intake Total 642 1673 240 Output Total 1620 150 Balance -978 1673 90 Med Orders - Current: Current Medications Acetaminophen (Tylenol) 650 mg PO Q4H PRN PRN Reason: Pain/Fever Last Admin: 12/15/16 10:56 Dose: 650 mg Albuterol/Ipratropium (Combivent Respimat) 0 gm INH QID PRN PRN Reason: Dyspnea Aspirin (Halfprin) 81 mg PO DAILY@1200 [facility] Last Admin: 12/15/16 11:00 Dose: 81 mg Diphenoxylate HCl/Atropine (Lomotil 0.025-2.5 Mg) 2 tab PO QID PRN PRN Reason: Diarrhea Last Admin: 12/14/16 06:36 Dose: 2 tab Enoxaparin Sodium (Lovenox) 30 mg SUBCUT Q24H [facility] Last Admin: 12/14/16 11:29 Dose: 30 mg Potassium Chloride/Dextrose/Sod Cl (D5 1/2 Ns W/ 20 Meq/L Kcl) 1,000 mls @ 70 mls/hr IV Q7H [facility] Stop: 12/15/16 20:59 Last Admin: 12/15/16 06:44 Dose: 70 mls/hr Potassium Chloride/Dextrose/Sod Cl (D5 1/2 Ns W/ 20 Meq/L Kcl) 1,000 mls @ 70 mls/hr IV Q14H [facility] Non-Formulary Medication (Lidhygenix) 1 applic EYEBOTH MOTH [facility] Potassium Chloride (Klor-Con 10) 30 meq PO BIDMEALS [facility] Last Admin: 12/15/16 10:55 Dose: 30 meq Sodium Chloride (Saline Flush) 10 ml FLUSH ASDIRECTED PRN PRN Reason: Keep Vein Open Last Admin: 12/11/16 11:59 Dose: 10 ml Discontinued Medications Bisacodyl (Dulcolax) 10 mg PO ONETIME ONE Stop: 12/14/16 09:05 Last Admin: 12/14/16 09:24 Dose: 10 mg Bupropion HCl (Wellbutrin Sr) 100 mg PO ONETIME ONE Stop: 12/13/16 09:01 Last Admin: 12/13/16 08:17 Dose: 100 mg Clopidogrel Bisulfate (Plavix) 75 mg PO MOWEFR [facility] Enoxaparin Sodium (Lovenox) 30 mg SUBCUT DAILY [facility] Sodium Chloride (Normal Saline) 1,000 mls @ 100 mls/hr IV ASDIRECTED [facility] Last Admin: 12/11/16 11:59 Dose: 100 mls/hr Potassium Chloride/Sodium Chloride (Normal Saline With 20 Meq Kcl) 1,000 mls @ 100 mls/hr IV Q10H [facility] Last Admin: 12/13/16 06:59 Dose: 100 mls/hr Iopamidol (Isovue-370 (76%)) 75 ml IV ONETIME ONE Stop: 12/12/16 11:53 Last Admin: 12/12/16 12:09 Dose: 61 ml Loperamide HCl (Imodium) 2 mg PO Q4H PRN PRN Reason: Diarrhea Last Admin: 12/13/16 00:15 Dose: 2 mg Melatonin (Melatonin) 6 mg PO BEDTIME PRN PRN Reason: Insomnia Polyethylene Glycol (Miralax) 238 gm PO ONETIME ONE Stop: 12/14/16 10:01 Last Admin: 12/14/16 10:20 Dose: 238 gm Potassium Chloride (Klor-Con 10) 30 meq PO BIDMEALS [facility] Last Admin: 12/12/16 18:03 Dose: 30 meq Potassium Chloride (Klor-Con 10) 30 meq PO TID [facility] Last Admin: 12/14/16 08:40 Dose: 30 meq *Q Meaningful Use (DIS) - VTE *Q VTE Criteria *Q: - Stroke *Q Stroke Criteria *Q: - AMI *Q AMI Criteria *Q:
[2016-12-15] MEDS ORDERED: fentaNYL 100 MCG/2 ML SDV IV ONE (14:44)
[2016-12-15] MEDS ORDERED: D5 1/2 NS w/ 20 mEq/L KCl 1,000 ML IV SCH (21:00)
--- NOTE | 2016-12-16 08:39 | CONS ---
DATE OF CONSULTATION: 12/12/2016 A 60-minute inpatient clinical event. IDENTIFICATION: The patient is a 76-year-old female, who is admitted to the inpatient medical unit at [facility] in [place], [place], and is seen for psychiatric consultation, at this point in time, secondary to increased confusion. CHIEF COMPLAINT: "I don't know." HISTORY OF PRESENT ILLNESS: The patient is a 76-year-old female, who is a resident at [facility] in [place], [place]. She was admitted on 12/10/2016 to the [facility] secondary to increased weight loss, decreased appetite, and increased confusion. At this point in time, she is being seen for psychiatric consultation. She is on a number of psychiatric medications, has a history of developing dementia, as well as depression and anxiety. Staff were concerned regarding the patient's mood state and mental state. The patient has had a 39-pound weight loss over the past 2 months, according to the treatment team. On interview, the patient is alert and oriented x2 to person and to place, but is unable to state the date and is unable to answer any questions in a meaningful way. Staff are reporting that the patient is calm on the unit, but tends to be quite confused when staff attempt to engage in conversation with the patient. MEDICATIONS: Psychiatric medications at the time of presentation are: 1. Namenda 21 mg daily. 2. Klonopin 0.5 mg at bedtime. 3. Aricept 10 mg at bedtime. 4. Trazodone 100 mg at bedtime. 5. Lexapro 10 mg daily. This was started on the inpatient unit. 6. Wellbutrin 100 mg b.i.d., also started on inpatient unit. 7. Melatonin. 8. Ultram. 9. Zantac. 10.Tramadol. For the list of other medications, please refer to the patient's medication sheets for those medications being prescribed by the patient's primary medical treatment team and outpatient provider. ALLERGIES: 1. Bacitracin. 2. Ciprofloxacin. 3. Morphine. PAST MEDICAL HISTORY: 1. Diarrhea of unknown etiology. 2. History of RA. 3. History of COPD. 4. History of weight loss of unknown etiology. REVIEW OF SYSTEMS: Aside from GI, musculoskeletal, immune, pulmonary, as well as neuro, all other major organ systems are negative at this point in time for acute difficulties and complications. FAMILY PSYCHIATRIC AND CD HISTORY: None reported. PAST PSYCHIATRIC AND CD HISTORY: The patient does have a history of depression and anxiety. Also, case diagnosis of dementia. PAST PSYCHIATRIC MEDICATIONS HISTORY: Includes Celexa. SOCIAL HISTORY: The patient most recently had been living in [place], [place] in [facility] prior to her admission at [facility] in [place], [place]. MENTAL STATUS EXAM: The patient is a 76-year-old white female in no apparent distress. Speech is of increased latency of response, short in duration of utterance. Psychomotor activity is within normal limits. There are no abnormal motor movements. No tics observed. Gait and station are not observed. This patient is seated in chair during the course of the interview. Mood is okay. Affect is confused. There is no behavioral or stated evidence of acute suicidal or homicidal ideation. There is no acute psychotic, delusional, or paranoid symptoms. Thought process is peer significant for dementia-like processes. There is no acute manic symptoms or loose associations. Judgement and insight do appear impaired, secondary to the patient's dementia processes. Motivation for followup is poor. VITAL SIGNS: 132/73, 88, 18, 98.3 degrees. IMPRESSION: AXIS I: 1. DEMENTIA, NOT OTHERWISE SPECIFIED, F03.90. 2. RULE OUT PSEUDODEMENTIA. 3. RULE OUT DEPRESSION, NOT OTHERWISE SPECIFIED. AXIS II: NONE. AXIS III: 1. DIARRHEA OF UNKNOWN ETIOLOGY. 2. WEIGHT LOSS OF UNKNOWN ETIOLOGY WITH 39-POUND WEIGHT LOSS OVER THE PAST 2 MONTHS. 3. HISTORY OF RHEUMATOID ARTHRITIS. 4. HISTORY OF CHRONIC OBSTRUCTIVE PULMONARY DISEASE. AXIS IV: SEVERE. AXIS V: GLOBAL ASSESSMENT OF FUNCTIONING OF 50. PLAN: 1. Discontinue Klonopin. 2. Discontinue trazodone. 3. Discontinue Lexapro. 4. Discontinue melatonin. 5. Discontinue tramadol. 6. Discontinue Wellbutrin. 7. Begin a trial of Wellbutrin SR 100 mg q.a.m. to help with mood, energy, and improving the patient's cognitive ability. 8. Recommend the primary medical treatment team to review of other medications as the patient is on a lengthy medication list to see if any medications can be reduced or eliminated. This may be contributory to her current confusion state and by removing some of these medications, this may help improve the patient's cognitive status. 9. We will continue to follow up with the patient while she remains on the inpatient medical unit at [facility] in [place], [place] as needed. 10.We will follow up with the patient sooner if any complications in the interim. 11.We will discuss treatment plan going forward with the patient's primary inpatient medical provider. 12.Crisis plan is in place. /[id number] DL/MODL
== END 2016-12-15 14:45 | DRG 641 ==
LOC: FB.MS 10:43
PROVIDERS: ADMIT Family Medicine; ATTEND Family Medicine
PROC: 0DBK8ZX Excision of Ascending Colon, Via Natural or Artificial Opening Endoscopic, Diagnostic (ICD-10-PCS; principal; 2016-12-15)
PROC: 0DBN8ZX Excision of Sigmoid Colon, Via Natural or Artificial Opening Endoscopic, Diagnostic (ICD-10-PCS; 2016-12-15)
PROC: 0DBL8ZX Excision of Transverse Colon, Via Natural or Artificial Opening Endoscopic, Diagnostic (ICD-10-PCS; 2016-12-15)
PROC: 0DBM8ZX Excision of Descending Colon, Via Natural or Artificial Opening Endoscopic, Diagnostic (ICD-10-PCS; 2016-12-15)
DX: R62.7 Adult failure to thrive (principal); E86.0 Dehydration; R63.4 Abnormal weight loss; Z66 Do not resuscitate; Z51.5 Encounter for palliative care; I69.920 Aphasia following unspecified cerebrovascular disease; I10 Essential (primary) hypertension; R22.2 Localized swelling, mass and lump, trunk; J44.9 Chronic obstructive pulmonary disease, unspecified; Z99.81 Dependence on supplemental oxygen; M54.9 Dorsalgia, unspecified; G89.29 Other chronic pain; F32.9 Major depressive disorder, single episode, unspecified; H35.30 Unspecified macular degeneration; Z95.1 Presence of aortocoronary bypass graft; K21.9 Gastro-esophageal reflux disease without esophagitis; Z87.440 Personal history of urinary (tract) infections; Z87.891 Personal history of nicotine dependence; R41.0 Disorientation, unspecified; R19.7 Diarrhea, unspecified; L25.9 Unspecified contact dermatitis, unspecified cause; F41.9 Anxiety disorder, unspecified; Z79.82 Long term (current) use of aspirin; Z88.1 Allergy status to other antibiotic agents; Z88.5 Allergy status to narcotic agent; Z96.652 Presence of left artificial knee joint
CPT/HCPCS: 36415; 71020; 71260; 74177; 80048; 80053; 81001; 83516; 83516-59; 83986; 84376; 84484; 85025; 87324; 88305; 89125; 93005; 97165-GO; A9270-GY; J1650; J2704; J3010; J3480; J7040; J7050; Q9967